=== PATIENT | male | born 1985 | race Caucasian/White ===

== ENCOUNTER 2016-10-25 03:16 | Inpatient (IN) | payer OTHER ==
[2016-10-25] MEDS ORDERED: NORMAL SALINE 1000 ML 1,000 ML IV ONE ×3 (03:45→04:40)
[2016-10-25] MEDS ORDERED: MORPHINE SULFATE 10 MG/ML INJ IV ONE (03:47)
--- NOTE | 2016-10-25 03:47 | ER Document Report ---
ED GI/ - General Chief Complaint: Abdominal Pain Stated Complaint: ABDOMINAL PAIN Time Seen by Provider: 10/25/16 03:31 Notes: Patient is a 30 year old male that comes to the ED for chief complaint of mid and left upper quadrant abdominal pain with about 7-8 episodes of vomiting. He denies hematemesis, he denies abnormal bowel movements. He denies chest pain, shortness of breath, fever. He comes by EMS, was given 8 mg Zofran ODT. He admits that he did binge for about 3-4 days on alcohol, states he has had a problem with this in the past, he has not had anything to drink since 5 AM reportedly. He has had pancreatitis in the past. He denies any surgeries. he is on omeprazole and trazodone at home. He denies any recreational drugs. TRAVEL OUTSIDE OF THE [place] IN LAST 30 DAYS: No - Related Data Allergies/Adverse Reactions: No Known Allergies Allergy (Unverified 11/21/15 18:23) Past Medical History - General Information source: Patient - Social History Smoking Status: Never Smoker Frequency of alcohol use: Heavy Drug Abuse: None Lives with: Alone Family History: Reviewed & Not Pertinent Patient has suicidal ideation: No Patient has homicidal ideation: No Renal/ Medical History: Denies: Hx Peritoneal Dialysis GI Medical History: Reports: Hx Gastroesophageal Reflux Disease. Denies: Hx Cirrhosis, Hx Crohn's Disease, Hx Diverticulitis, Hx Hepatitis, Hx Hiatal Hernia , Hx Ulcerative Colitis Skin Medical History: Denies Hx Eczema, Denies Hx Psoriasis Psychiatric Medical History: Reports: Hx Depression Infectious Medical History: Denies: Hx C-Diff, Hx Hepatitis, Hx HIV, Hx MRSA, Hx VRE Surgical Hx: Negative - Immunizations Immunizations up to date: Yes Hx Diphtheria, Pertussis, Tetanus Vaccination: Yes Review of Systems - Review of Systems Constitutional: No symptoms reported EENT: No symptoms reported Cardiovascular: No symptoms reported Respiratory: No symptoms reported Gastrointestinal: See HPI Genitourinary: No symptoms reported Male Genitourinary: No symptoms reported Musculoskeletal: No symptoms reported Skin: No symptoms reported Hematologic/Lymphatic: No symptoms reported Neurological/Psychological: No symptoms reported Physical Exam - Vital signs Vitals: Temp Pulse Resp BP Pulse Ox 97.5 F 54 L 24 H 168/84 H 97 10/25/16 03:32 10/25/16 03:32 10/25/16 03:32 10/25/16 03:32 10/25/16 03:32 Interpretation: Normal - General General appearance: Alert In distress: Mild - HEENT Head: Normocephalic, Atraumatic Eyes: Normal Conjunctiva: Normal Extraocular movements intact: Yes Eyelashes: Normal Pupils: PERRL Mouth/Lips: Normal, Other - trace amounts of zofran on lips Mucous membranes: Dry Pharynx: Normal Neck: Normal - Respiratory Respiratory status: No respiratory distress Chest status: Nontender Breath sounds: Normal Chest palpation: Normal - Cardiovascular Rhythm: Regular Heart sounds: Normal auscultation Murmur: No - Abdominal Inspection: Normal Distension: No distension Bowel sounds: Normal Tenderness: Tender - Tender epigastric and left upper quadrant areas on examination. Remaining abdomen is unremarkable. Organomegaly: No organomegaly - Back Back: Normal, Nontender - Extremities General upper extremity: Normal inspection, Nontender, Normal color, Normal ROM , Normal temperature General lower extremity: Normal inspection, Nontender, Normal color, Normal ROM , Normal temperature, Normal weight bearing. No: Alen's sign - Neurological Neuro grossly intact: Yes Cognition: Normal Orientation: AAOx4 Vicky Coma Scale Eye Opening: Spontaneous [place] Coma Scale Verbal: Oriented [place] Coma Scale Motor: Obeys Commands [place] Coma Scale Total: 15 Speech: Normal Motor strength normal: LUE, RUE, LLE, RLE Sensory: Normal - Psychological Associated symptoms: Anxious - Skin Skin Temperature: Warm Skin Moisture: Dry Skin Color: Normal Course - Re-evaluation Re-evalutation: Patient with epigastric and left upper quadrant pain on examination. He appears uncomfortable but he is alert, nontoxic. No tachycardia or hypotension. Remaining abdomen is unremarkable. No vomiting after Zofran. CBC shows mild leukocytosis at 11.2 with elevation of neutrophils, no bandemia, most likely related to vomiting. Chemistry shows normal LFTs, total bilirubin is mildly elevated but direct bilirubin is normal. Alkaline phosphate is unremarkable. Lipase is elevated consistent with acute alcoholic pancreatitis. Low suspicion of obstructive abnormality based on presentation and chemistry findings. Discussed with patient, patient still having pain after morphine, most likely will require admission. Discussed with Dr. Blood. Discussed with Dr. Nesbitt, patient will be admitted to telemetry for admission. - Vital Signs Vital signs: Temp Pulse Resp BP Pulse Ox 97.5 F 54 L 24 H 168/84 H 97 10/25/16 03:32 10/25/16 03:32 10/25/16 03:32 10/25/16 03:32 10/25/16 03:32 - Laboratory Result Diagrams: 10/25/16 03:51 10/25/16 03:51 Laboratory results interpreted by me: 10/25/16 10/25/16 03:51 03:51 WBC 11.5 H Seg Neutrophils % 88.6 H Lymphocytes % 5.5 L Absolute Neutrophils 10.2 H Sodium 136.8 L Glucose 217 H Total Bilirubin 1.7 H Lipase 3860.5 H Discharge - Discharge Clinical Impression: Alcohol abuse Pancreatitis Qualifiers: Chronicity: acute Pancreatitis type: alcohol induced Acute pancreatitis complication: unspecified Qualified Code(s): K85.20 - Alcohol induced acute pancreatitis without necrosis or infection Abdominal pain Qualifiers: Abdominal location: upper abdomen, unspecified Qualified Code(s): R10.10 - Upper abdominal pain, unspecified Nausea and vomiting Qualifiers: Vomiting type: unspecified Vomiting Intractability: non-intractable Qualified Code(s): R11.2 - Nausea with vomiting, unspecified Condition: Stable Disposition: ADMITTED INPATIENT Admitting Provider: Hospitalist Unit Admitted: Telemetry
[2016-10-25 04:08] LABS: ABSOLUTE LYMPHOCYTES (AUTO) 0.6 10^3/uL (0.5-4.7); ABSOLUTE MONOCYTES (AUTO) 0.7 10^3/uL (0.1-1.4); ABSOLUTE NEUT (AUTO) 10.2 10^3/uL (1.7-8.2); BASOPHILS % (AUTO) 0.1 % (0-2); HEMATOCRIT 47.3 % (37.9-51.0); HEMOGLOBIN 16.8 g/dL (13.5-17.0); HGB HCT DIFFERENCE 3.1; LYMPHOCYTES % (AUTO) 5.5 % (13-45); MEAN CORPUSCULAR HEMOGLOBIN 30.5 pg (27.0-33.4); MEAN CORPUSCULAR HGB CONC 35.5 g/dL (32.0-36.0); MEAN CORPUSCULAR VOLUME 86 fl (80-97); MONOCYTES % (AUTO) 5.8 % (3-13); RED BLOOD COUNT 5.51 10^6/uL (4.35-5.55); RED CELL DISTRIBUTION WIDTH 13.6 % (11.5-14.0); SEGMENTED NEUTROPHILS % (AUTO) 88.6 % (42-78); WHITE BLOOD COUNT 11.5 10^3/uL (4.0-10.5)
[2016-10-25 04:22] LABS: ALANINE AMINOTRANSFERASE 35 U/L (21-72); ALBUMIN 4.6 g/dL (3.5-5.0); ALKALINE PHOSPHATASE 83 U/L (38-126); ANION GAP 15 (5-19); ASPARTATE AMINO TRANSFERASE 27 U/L (17-59); BILIRUBIN,DIRECT 0.4 mg/dL (0.0-0.4); BILIRUBIN,TOTAL 1.7 mg/dL (0.2-1.3); BLOOD UREA NITROGEN 16 mg/dL (7-20); CALCIUM 9.7 mg/dL (8.4-10.2); CARBON DIOXIDE 24 mmol/L (22-30); CHLORIDE 98 mmol/L (98-107); CREATININE RESULT 0.98 mg/dL (0.52-1.25); GLUCOSE 217 mg/dL (75-110); POTASSIUM 4.4 mmol/L (3.6-5.0); SODIUM 136.8 mmol/L (137-145); TOTAL PROTEIN 7.3 g/dL (6.3-8.2)
[2016-10-25 04:28] LABS: ALCOHOL < 10 mg/dL (NONE DETECTED); LIPASE 3860.5 U/L (23-300)
[2016-10-25] MEDS ORDERED: THIAMINE HCL 100 MG in NORMAL SALINE 50 ML IV ONE (04:40)
[2016-10-25] MEDS ORDERED: HYDROMORPHONE HCL INJ/PF 2 MG/ML AMPULE IV ONE (04:40)
[2016-10-25] MEDS ORDERED: THIAMINE HCL INJ 200 MG/2 ML VIAL IV PRN (04:56)
[2016-10-25 05:10] LABS: ADD ON TESTING BLD IN LAB ACKNOWLEDGE
[2016-10-25 05:19] LABS: MAGNESIUM 1.4 mg/dL (1.6-2.3)
[2016-10-25] MEDS ORDERED: NORMAL SALINE IV ONE (05:30)
[2016-10-25] MEDS ORDERED: THIAMINE HCL IV ONE (05:30)
[2016-10-25] MEDS ORDERED: ACETAMINOPHEN 325 MG TABLET PO PRN (05:43)
[2016-10-25] MEDS ORDERED: MORPHINE SULFATE 10 MG/ML INJ IV PRN (05:43)
[2016-10-25] MEDS ORDERED: PROMETHAZINE HCL 25 MG TABLET PO PRN (05:43)
[2016-10-25] MEDS ORDERED: GLUCAGON,HUMAN RECOMB 1 MG INJ IM PRN (05:45)
[2016-10-25] MEDS ORDERED: DEXTROSE 50%-WATER 25 GM/50 ML DISP.SYRIN IV PRN ×2 (05:45)
[2016-10-25] MEDS ORDERED: DEXTROSE 40% GEL 15 GM TUBE PO PRN ×2 (05:45)
[2016-10-25] MEDS ORDERED: INSULIN LISPRO 100 UNIT/ML 3 ML VIAL SUBCUT PRN (05:45)
[2016-10-25] MEDS ORDERED: LORAZEPAM INJ 2 MG/1 ML VIAL IV PRN ×3 (05:47→06:00)
[2016-10-25] MEDS ORDERED: MAGNESIUM HYDROXIDE SUSP 30 ML UDCUP PO PRN (05:51)
[2016-10-25] MEDS: LORAZEPAM INJ 2 MG/1 ML VIAL IV PRN ×5 (06:03→21:33)
[2016-10-25] MEDS ORDERED: NICOTINE 21 MG/24 HR PATCH.TD24 TD PRN (06:24)
--- NOTE | 2016-10-25 06:28 | PDOC H&P ---
History of Present Illness Admission Date/PCP: 10/25/16 04:48 Dr. hurley, [facility] Patient complains of: abd pain, N/V History of Present Illness: DEBORAH HARDY is a 30 year old male with underlying depression, without suicidal or homicidal ideation, hypertension, noncompliant with medications for same, easy bruising, alcohol dependence in the form of binging, with 2 prior episodes of alcoholic pancreatitis, 2014, and again in 2016, who presents to the emergency room for evaluation of above complaint. Patient has been discussed with emergency room nurse practitioner who evaluated the patient. Completed a 3-4 day alcoholic binge approximately 24 hours ago; none since then. Starting approximately 12 hours ago, he has experienced intermittent combination cramping and sharp mostly mid and left upper quadrant abdominal pain , without radiation. Increases when he lies on his left side, and with virtually any p.o. intake. 7- 8 episodes of nonbloody emesis. No fever or chills, diarrhea or dysuria. No chest pain. States this feels like his previous 2 episodes of pancreatitis. States that when he is binging alcohol, he will typically drink 1/5 of whiskey per day. Hospitalized on our service 11/20 through 11/29/2015 with final diagnoses including acute alcoholic pancreatitis resolved, and uncomplicated alcohol withdrawal, among other diagnoses. Workup during that hospital stay included CT scan of the abdomen and pelvis revealing extensive peripancreatic inflammatory stranding with free fluid in the paracolic gutters, consistent with pancreatitis. Ultrasound not overly remarkable. History and physical, discharge summary, and imaging study reports reviewed. Currently resting quietly, stating he does feel a bit better though, although still having some upper abdominal pain Dictation via voice recognition software. Laboratory results are listed in [facility] and are reviewed. 10/25/16 03:51 Lipase 3860.5 H Social history/personal habits: . No children. Active duty . Dips snuff. No illicit drug use. Alcohol use as noted above. Allergies/adverse reactions are listed in [employer] and are reviewed. Home medications initially autopopulated into [employer] may not accurately reflect patient's true medications, dosages, and/or frequencies. orthopedic radiologic technologist to reconcile medications. Medications discussed with patient. Unfortunately, patient not certain of all medications/dosages/frequencies. REVIEW OF SYSTEMS: Constitutional: No fever or chills. Eyes: Wears glasses. ENT: No swallowing problems or complaints. Denies hearing loss. Pulmonary: No current complaints. Cardiovascular: No current complaints, including chest pain. Gastrointestinal: See history and present illness. Skin: No current complaints, including rashes. Hematologic: Easy bruising. Neurologic: No current complaints, including numbness or tingling. Musculoskeletal: No current or chronic joint complaints, such as arthritis. Psychiatric: Anxiety and depression; denies suicidal or homicidal ideation. Endocrine: No current complaints, including polyuria. Genitourinary: No current complaints, including dysuria. PHYSICAL EXAMINATION: 6 feet 3 inches tall. 115.5 kg. BMI 31.8 kg/m. Blood pressure 163/86. Pulse 53 and regular. 97% saturation on room air. Respirations are 16 and unlabored. Temperature 97.5. Somewhat obese but also somewhat stocky otherwise well-developed male appearing approximately his stated age. Appears perhaps slightly fatigued, and also to feel a bit under the weather, so to speak. Mildly anxious, without agitation. Pleasant alert and cooperative. Female emergency room nurse Gena is present. Skin is warm and dry. No grossly obvious evidence of rash in areas of skin examined. No subcutaneous nodules palpated. ENT: Hearing grossly normal to normal conversation. Tongue midline on protrusion pink and slightly tacky. Eyes: No scleral icterus. Pupils equal and reactive to light at 4 mm. [place] conjunctivae. Neck is supple and nontender to gentle active range of motion and palpation. Midline trachea. No palpable thyroid nodule mass enlargement or tenderness. Lymphatic: No palpable cervical or clavicular nodes. Neck and lymphatic exams limited by patient body habitus. Psychiatric: Reasonable insight into acute and chronic medical issues. Oriented to time location and why here. Lungs: Auscultation reveals clear and equal breath sounds bilaterally. No use of accessory respiratory muscles. Cardiovascular: Heart regular rate and rhythm, without gallop murmur or rub. No carotid or abdominal aortic bruits. No ankle or pedal edema. Palpable dorsalis pedis pulses. Abdomen:soft somewhat obese and slightly distended with positive bowel sounds. Minimal lower abdominal discomfort; mild to moderate tenderness primarily in the epigastrium and left upper quadrant. No evidence of guarding or peritoneal signs. Unable to adequately evaluate abdomen for masses or organomegaly due to body habitus, distention, and discomfort. Extremities: Feet are warm and dry. No calf tenderness to compression. No grossly obvious visual evidence of calf swelling. Gentle manipulation of lower extremities fails to reveal any obvious evidence of injury or instability to knees hips or ankles. Neurologic: Moves upper extremities grossly normally. Patellar reflexes absent. Absent Babinski. Light touch is intact at feet. Dorsiflexion and plantarflexion of feet 5 / 5 and symmetric. No ankle clonus. Past Medical History Cardiac Medical History: Reports: Hypertension Denies: Atrial Fibrillation, Congestive Heart Failure, Coronary Artery Disease, DVT, Myocardial Infarction, Hyperlipidema, Pulmonary Embolism Pulmonary Medical History: Denies: Asthma, Chronic Obstructive Pulmonary Disease (COPD), Sleep Apnea EENT Medical History: Reports: Eyes - Glasses Denies: Ears, Throat Neurological Medical History: Denies: Hemorrhagic CVA, Ischemic CVA, Seizures Endocrine Medical History: Denies: Diabetes Mellitus Type 1, Diabetes Mellitus Type 2, Hyperthyroidism, Hypothyroidism Renal/ Medical History: Reports: None GI Medical History: Reports: Gastroesophageal Reflux Disease Denies: Cirrhosis, Hepatitis, Peptic Ulcer Disease Musculoskeltal Medical History: Denies: Arthritis Skin Medical History: Denies: Eczema, Psoriasis Psychiatric Medical History: Reports: Alcohol Dependency, Depression, General Anxiety Disorder, Tobacco Dependency Denies: Substance Abuse Hematology: Reports: Other - Easy bruising Infectious Medical History: Denies: Clostridium Difficile, Hepatitis B, Hepatitis C, HIV, Methicillin- Resistant Staph Aureus, Vancomycin-Resistant Enterococci Past Surgical History Past Surgical History: Reports: Orthopedic Surgery - Left knee ACL repair, Tonsillectomy, Other - [place] teeth extraction Social History Information Source: Patient, Emergency Med Personnel, [facility] Records Lives with: Alone Smoking Status: Unknown if Ever Smoked - Dips snuff Frequency of Alcohol Use: Heavy Hx Recreational Drug Use: No Drugs: None - Advance Directive Resuscitation Status: Full Code Surrogate healthcare decision maker:: Father Family History Family History: Reviewed & Not Pertinent Parental Family History Reviewed: Yes - Mother healthy; father with hypertension Children Family History Reviewed: NA Sibling(s) Family History Reviewed.: Yes - Healthy Medication/Allergy Home Medications: Acetyl/Methyl-B12/Lmefolate Ca [Metafolbic Plus Caplet] 1 tab PO DAILY 11/22/15 Fluoxetine HCl 20 mg PO DAILY 11/22/15 Melatonin 3 mg PO QHS 11/22/15 Ranitidine HCl 150 mg PO PRN PRN 11/22/15 Esomeprazole Magnesium [Nexium] 20 mg PO QHS #30 capsule. 11/29/15 Fluoxetine HCl [Prozac 20 mg Capsule] 20 mg PO QHS #14 capsule 11/29/15 Hydroxyzine Pamoate [Vistaril 50 mg Capsule] 50 mg PO Q6HP PRN #20 capsule 11/28 Lisinopril [Prinivil 5 mg Tablet] 5 mg PO DAILY #30 tablet 11/29/15 Thiamine HCl [Thiamine 100 mg Tablet] 100 mg PO DAILY #90 tablet 11/29/15 Trazodone HCl 200 mg PO QHS #30 tablet 11/29/15 Allergies/Adverse Reactions: No Known Allergies Allergy (Unverified 11/21/15 18:23) Physical Exam Vital Signs: Temp Pulse Resp BP Pulse Ox 97.5 F 54 L 20 167/91 H 97 10/25/16 03:32 10/25/16 03:32 10/25/16 05:31 10/25/16 05:31 10/25/16 05:31 Assessment & Plan - Diagnosis (1) Alcoholic pancreatitis Qualifiers: Chronicity: acute Acute pancreatitis complication: unspecified Qualified Code(s): K85.20 - Alcohol induced acute pancreatitis without necrosis or infection Is this a current diagnosis for this admission?: Yes Plan: Bowel rest. Ice chips only. IV fluid. Pain control. Lipid panel. Strict intake and output. Pepcid for gastritis prophylaxis. I have strongly encouraged patient not to get out of bed without notifying staff , to avoid a fall with injury. Knee high SCDs for DVT prophylaxis, along with subcutaneous Lovenox. Impression and plans were discussed with patient, who concurs. Time spent in evaluation and management of patient: 68 minutes. (2) Hypomagnesemia Is this a current diagnosis for this admission?: Yes Plan: Magnesium supplement. (3) Engages in binge consumption of alcohol Is this a current diagnosis for this admission?: Yes Plan: Alcohol withdrawal protocol, including scheduled and as needed Ativan, along with daily banana bag. (4) Depressive disorder Is this a current diagnosis for this admission?: Yes Plan: Resume home medications as appropriate once these have been determined and reviewed. (5) Tobacco dependence Is this a current diagnosis for this admission?: Yes Plan: As needed nicotine patch. - Time Time Spent: 50 to 70 Minutes Medications reviewed and adjusted accordingly: Yes Anticipated discharge: Home Within: within 72 hours - Inpatient Certification Based on my medical assessment, after consideration of the patient's comorbidities, presenting symptoms, or acuity I expect that the services needed warrant INPATIENT care.: Yes I certify that my determination is in accordance with my understanding of Medicare's requirements for reasonable and necessary INPATIENT services [42 CFR 412.3e].: Yes Medical Necessity: Need Close Monitoring Due to Risk of Patient Decompensation, Need For IV Fluids, Need for Pain Control, Risk of Complication if Not Cared For in Hospital Post Hospital Care: D/C or Transfer Summary
[2016-10-25] MEDS ORDERED: ENALAPRILAT DIHYDRATE INJ/PF 1.25 MG/1 ML SDV IV PRN (06:29)
[2016-10-25] MEDS ORDERED: MAGNESIUM SULFATE/D5W 1 GM/100 ML RTUPB IV SCH (06:30)
[2016-10-25 07:10] LABS: CHOLESTEROL 197.58 mg/dL (0-200); Direct HDL 65 mg/dL (>40); TRIGLYCERIDES 195 mg/dL (<150)
[2016-10-25 07:21] LABS: DIRECT LDL 91 mg/dL (<100)
[2016-10-25] MEDS: HYDROMORPHONE HCL INJ/PF 2 MG/ML AMPULE IV PRN ×5 (09:07→23:48)
[2016-10-25] MEDS: FAMOTIDINE INJ/PF 20 MG/2 ML SDV IV SCH ×2 (09:08→21:33)
[2016-10-25] MEDS: ENOXAPARIN SODIUM INJ 40 MG/0.4 ML DISP.SYRIN SUBCUT SCH (09:08)
[2016-10-25] MEDS: NORMAL SALINE 1000 ML 1,000 ML IV PRN ×3 (09:09→19:35)
[2016-10-25] MEDS ORDERED: FATTY ACIDS PO SCH (10:00)
[2016-10-25] MEDS ORDERED: MELATONIN 9 MG PO SCH ×2 (10:00→22:00)
[2016-10-25] MEDS ORDERED: OMEGA PO SCH (10:00)
[2016-10-25] MEDS ORDERED: FISH OIL PO SCH (10:00)
[2016-10-25] MEDS: DOCUSATE SODIUM 100 MG CAPSULE PO SCH ×2 (10:10→17:52)
[2016-10-25] MEDS: OMEGA-3 ACID ETHYL ESTERS 1 GM CAPSULE PO SCH (10:12)
[2016-10-25] MEDS: MULTIVITAMIN TABLET PO SCH (10:12)
[2016-10-25] MEDS: MAGNESIUM SULFATE 1 GM/D5W 100 ML IV SCH ×2 (13:54→16:15)
[2016-10-25] MEDS: NORMAL SALINE 1000 ML 1,000 ML with THIAMINE HCL 100 MG, MVI, ADULT NO.1 WITH VIT K 10 ... IV SCH ×4 (17:52)
[2016-10-25 19:29] LABS: URINE BARBITURATES SCREEN NEGATIVE; URINE METHADONE SCREEN NEGATIVE; URINE PHENCYCLIDINE SCREEN NEGATIVE
[2016-10-25 19:41] LABS: URINE OPIATES LOW UNCONFIRMED POSITIVE
[2016-10-25] MEDS ORDERED: TRAZODONE HCL 50 MG TABLET PO SCH (22:00)
[2016-10-25] MEDS ORDERED: (PENDING PHARMACY ID) (Trazodone Hcl [Desyrel] 150 MG) PO SCH (22:00)
[2016-10-26] MEDS: NORMAL SALINE 1000 ML 1,000 ML IV PRN ×5 (02:34→19:45)
[2016-10-26] MEDS: LORAZEPAM INJ 2 MG/1 ML VIAL IV PRN ×6 (02:38→19:57)
[2016-10-26] MEDS: HYDROMORPHONE HCL INJ/PF 2 MG/ML AMPULE IV PRN ×5 (04:45→18:33)
[2016-10-26 05:21] LABS: ABSOLUTE LYMPHOCYTES (AUTO) 0.8 10^3/uL (0.5-4.7); ABSOLUTE MONOCYTES (AUTO) 0.5 10^3/uL (0.1-1.4); ABSOLUTE NEUT (AUTO) 6.7 10^3/uL (1.7-8.2); BASOPHILS % (AUTO) 0.2 % (0-2); EOSINOPHILS % (AUTO) 0.1 % (0-6); HEMATOCRIT 42.2 % (37.9-51.0); HEMOGLOBIN 14.9 g/dL (13.5-17.0); HGB HCT DIFFERENCE 2.5; LYMPHOCYTES % (AUTO) 9.9 % (13-45); MEAN CORPUSCULAR HEMOGLOBIN 30.8 pg (27.0-33.4); MEAN CORPUSCULAR HGB CONC 35.3 g/dL (32.0-36.0); MEAN CORPUSCULAR VOLUME 87 fl (80-97); MONOCYTES % (AUTO) 5.6 % (3-13); RED BLOOD COUNT 4.84 10^6/uL (4.35-5.55); RED CELL DISTRIBUTION WIDTH 13.5 % (11.5-14.0); SEGMENTED NEUTROPHILS % (AUTO) 84.2 % (42-78)
[2016-10-26 05:38] LABS: ALANINE AMINOTRANSFERASE 18 U/L (21-72); ALBUMIN 3.4 g/dL (3.5-5.0); ALKALINE PHOSPHATASE 59 U/L (38-126); ANION GAP 9 (5-19); ASPARTATE AMINO TRANSFERASE 19 U/L (17-59); BILIRUBIN,DIRECT 0.6 mg/dL (0.0-0.4); BILIRUBIN,TOTAL 1.3 mg/dL (0.2-1.3); BLOOD UREA NITROGEN 11 mg/dL (7-20); CALCIUM 8.3 mg/dL (8.4-10.2); CARBON DIOXIDE 26 mmol/L (22-30); CHLORIDE 103 mmol/L (98-107); CREATININE RESULT 0.87 mg/dL (0.52-1.25); GLUCOSE 103 mg/dL (75-110); MAGNESIUM 2.1 mg/dL (1.6-2.3); POTASSIUM 4.3 mmol/L (3.6-5.0); SODIUM 138.2 mmol/L (137-145); TOTAL PROTEIN 5.6 g/dL (6.3-8.2)
[2016-10-26 05:46] LABS: LIPASE 2043.8 U/L (23-300)
--- NOTE | 2016-10-26 09:25 | PDOC PROGRESS REPORT ---
Subjective Progress Note for:: 10/26/16 Subjective:: Patient is seen on morning rounds. He states he is feeling better than yesterday. He is no longer nauseated. Abdominal pain is still present intermittently, but improved. He denies any shortness of breath or dyspnea. He denies any back pain, arthralgias or myalgias. Remaining review of systems is unremarkable. Physical Exam Vital Signs: Temp Pulse Resp BP Pulse Ox 99.4 F 56 L 16 145/86 H 98 10/26/16 07:12 10/26/16 07:12 10/26/16 07:12 10/26/16 07:12 10/26/16 07:12 Intake & Output 10/25/16 10/26/16 10/27/16 06:59 06:59 06:59 Intake Total 6120 Output Total 700 Balance 5420 Weight 125.7 kg General appearance: PRESENT: no acute distress, obese, well-developed, well- nourished Head exam: PRESENT: atraumatic, normocephalic Eye exam: PRESENT: conjunctiva pink, EOMI, PERRLA. ABSENT: scleral icterus Ear exam: PRESENT: normal external ear exam Mouth exam: PRESENT: moist, tongue midline Neck exam: ABSENT: carotid bruit, JVD, lymphadenopathy, thyromegaly Respiratory exam: PRESENT: clear to auscultation lela. ABSENT: rales, rhonchi, wheezes Cardiovascular exam: PRESENT: RRR. ABSENT: diastolic murmur, rubs, systolic murmur Pulses: PRESENT: normal dorsalis pedis pul Vascular exam: PRESENT: normal capillary refill GI/Abdominal exam: PRESENT: normal bowel sounds, soft, tenderness - mild epigastric. ABSENT: distended, guarding, mass, organolmegaly, rebound Rectal exam: PRESENT: deferred Extremities exam: PRESENT: full ROM. ABSENT: calf tenderness, clubbing, pedal edema Neurological exam: PRESENT: alert, awake, oriented to person, oriented to place , oriented to time, oriented to situation, CN II-XII grossly intact. ABSENT: motor sensory deficit Psychiatric exam: PRESENT: appropriate affect, normal mood. ABSENT: homicidal ideation, suicidal ideation Skin exam: PRESENT: dry, intact, warm. ABSENT: cyanosis, rash Results Laboratory Results: 10/26/16 04:26 10/26/16 04:26 10/26/16 10/26/16 04:26 04:26 WBC 8.0 RBC 4.84 Hgb 14.9 Hct 42.2 MCV 87 MCH 30.8 MCHC 35.3 RDW 13.5 Plt Count 112 L Seg Neutrophils % 84.2 H Lymphocytes % 9.9 L Monocytes % 5.6 Eosinophils % 0.1 Basophils % 0.2 Absolute Neutrophils 6.7 Absolute Lymphocytes 0.8 Absolute Monocytes 0.5 Absolute Eosinophils 0.0 Absolute Basophils 0.0 Sodium 138.2 Potassium 4.3 Chloride 103 Carbon Dioxide 26 Anion Gap 9 BUN 11 Creatinine 0.87 Est GFR ( Amer) > 60 Est GFR (Non-Af Amer) > 60 Glucose 103 Calcium 8.3 L Magnesium 2.1 Total Bilirubin 1.3 AST 19 ALT 18 L Alkaline Phosphatase 59 Total Protein 5.6 L Albumin 3.4 L Lipase 2043.8 H Assessment & Plan - Diagnosis (1) Alcoholic pancreatitis Qualifiers: Chronicity: acute Acute pancreatitis complication: unspecified Qualified Code(s): K85.20 - Alcohol induced acute pancreatitis without necrosis or infection Is this a current diagnosis for this admission?: Yes Plan: Lipase down to 2077 today. Abdominal pain improved. Nausea and vomiting resolved. Will allow small amounts of clear liquids (2) Alcohol abuse Plan: No signs of DTs. Thiamine. Outpatient counseling (3) Hypomagnesemia Is this a current diagnosis for this admission?: Yes (4) Nausea and vomiting Qualifiers: Vomiting type: unspecified Vomiting Intractability: non-intractable Qualified Code(s): R11.2 - Nausea with vomiting, unspecified Plan: Resolved (5) Chronic alcoholism Is this a current diagnosis for this admission?: Yes (6) Elevated liver function tests Is this a current diagnosis for this admission?: Yes Plan: Secondary to chronic alcoholism - Time Time Spent with patient: 25-34 minutes Critical Time spent with patient: 15-24 minutes Medications reviewed and adjusted accordingly: Yes Anticipated discharge: Home
[2016-10-26] MEDS: OMEGA-3 ACID ETHYL ESTERS 1 GM CAPSULE PO SCH (09:37)
[2016-10-26] MEDS: DOCUSATE SODIUM 100 MG CAPSULE PO SCH ×2 (09:38→17:31)
[2016-10-26] MEDS: FAMOTIDINE INJ/PF 20 MG/2 ML SDV IV SCH (09:38)
[2016-10-26] MEDS: ENOXAPARIN SODIUM INJ 40 MG/0.4 ML DISP.SYRIN SUBCUT SCH (09:38)
[2016-10-26] MEDS: MULTIVITAMIN TABLET PO SCH (09:38)
--- NOTE | 2016-10-26 15:07 | PDOC DISCHARGE SUMMARY ---
General - Admit/Disc Date/PCP Admission Date/Primary Care Provider: 10/25/16 05:51 Discharge Date: 10/26/16 - Discharge Diagnosis (1) Alcoholic pancreatitis Is this a current diagnosis for this admission?: Yes Summary: Lipase trending downward. Pain improved, No longer vomiting tolerating diet. Patient asking to be discharged home due to his job. (2) Alcohol abuse Is this a current diagnosis for this admission?: Yes Summary: Counseled. With follow up with outpatient counseling. (3) Hypomagnesemia Is this a current diagnosis for this admission?: Yes Summary: Resolved (4) Nausea and vomiting Is this a current diagnosis for this admission?: Yes Summary: Resolved (5) Chronic alcoholism Is this a current diagnosis for this admission?: Yes Summary: Patient says he binge drinks when he is bored (6) Elevated liver function tests Is this a current diagnosis for this admission?: Yes Summary: Secondary to etoh intake - Additional Information Resuscitation Status: Full Code Discharge Diet: Regular Discharge Activity: Activity As Tolerated, Balance Activity w/Rest Home Medications: Melatonin [Melatin] 9 mg PO QHS 10/25/16 Multivitamin [Daily Multiple Vitamin] 1 tab PO DAILY 10/25/16 [place]-3 Fatty Acids/Fish Oil [Fish Oil 1,000 mg Capsule] 3 cap PO DAILY Pantoprazole Sodium [Protonix] 40 mg PO DAILY 10/25/16 Trazodone HCl [Desyrel] 150 mg PO QHS 10/25/16 Acetaminophen [Tylenol 325 mg Tablet] 650 mg PO Q8HP PRN tablet 10/26/16 Hydrocodone/Acetaminophen [Hydrocodon-Acetaminophn 10-300] 1 each PO Q4HP PRN # 18 tablet 10/26/16 Nicotine [Nicoderm 21 mg/24 Hr Transderm Patch] 1 each TD DAILYP PRN patch.td24 10/26/16 History of Present Illness Patient complains of: Epigastric pain and vomiting History of Present Illness: DEBORAH HARDY is a 30 year old male with underlying depression, without suicidal or homicidal ideation, hypertension, noncompliant with medications for same, easy bruising, alcohol dependence in the form of binging, with 2 prior episodes of alcoholic pancreatitis, 2014, and again in 2016, who presents to the emergency room for evaluation of above complaint. Patient has been discussed with emergency room nurse practitioner who evaluated the patient. Completed a 3-4 day alcoholic binge approximately 24 hours ago; none since then. Starting approximately 12 hours ago, he has experienced intermittent combination cramping and sharp mostly mid and left upper quadrant abdominal pain , without radiation. Increases when he lies on his left side, and with virtually any p.o. intake. 7- 8 episodes of nonbloody emesis. No fever or chills, diarrhea or dysuria. No chest pain. States this feels like his previous 2 episodes of pancreatitis. States that when he is binging alcohol, he will typically drink 1/5 of whiskey per day. Hospital Course Hospital Course: Patient was admitted to [facility] on telemetry. He was aggressively rehydrated is kept n.p.o. for 24 hours. This morning his abdominal pain is much improved. His lipase is trending down below 1200 he tolerated clear liquids. Having no further vomiting. Patient asked if he could possibly be discharged home this evening because of his employment in the . He was given IV Dilaudid with improvement of his pain during his hospitalization. He required 1 dose of IV Zofran. He had no signs of alcohol withdrawal. He states he does not drink daily large amounts. He tends to binge drink when he is bored and then he drinks up to 1/5 of whiskey a day. He has been counseled regarding this. He will be referred to outpatient counseling for for alcohol abuse. This is his third hospitalization for alcoholic pancreatitis. Physical Exam Vital Signs: Temp Pulse Resp BP Pulse Ox 99.4 F 56 L 16 145/86 H 98 10/26/16 07:12 10/26/16 07:12 10/26/16 07:12 10/26/16 07:12 10/26/16 07:12 Intake & Output 10/25/16 10/26/16 10/27/16 06:59 06:59 06:59 Intake Total 6120 491 Output Total 700 340 Balance 5420 151 Weight 125.7 kg General appearance: PRESENT: no acute distress, well-developed, well-nourished Head exam: PRESENT: atraumatic, normocephalic Eye exam: PRESENT: conjunctiva pink, EOMI, PERRLA. ABSENT: scleral icterus Ear exam: PRESENT: normal external ear exam Mouth exam: PRESENT: moist, tongue midline Neck exam: ABSENT: carotid bruit, JVD, lymphadenopathy, thyromegaly Respiratory exam: PRESENT: clear to auscultation lela. ABSENT: rales, rhonchi, wheezes Cardiovascular exam: PRESENT: RRR. ABSENT: diastolic murmur, rubs, systolic murmur Pulses: PRESENT: normal dorsalis pedis pul Vascular exam: PRESENT: normal capillary refill GI/Abdominal exam: PRESENT: normal bowel sounds, soft, tenderness - mild epigastric to deep palpation. ABSENT: distended, guarding, mass, organolmegaly , rebound Rectal exam: PRESENT: deferred Extremities exam: PRESENT: full ROM. ABSENT: calf tenderness, clubbing, pedal edema Neurological exam: PRESENT: alert, awake, oriented to person, oriented to place , oriented to time, oriented to situation, CN II-XII grossly intact. ABSENT: motor sensory deficit Psychiatric exam: PRESENT: appropriate affect, normal mood. ABSENT: homicidal ideation, suicidal ideation Skin exam: PRESENT: dry, intact, warm. ABSENT: cyanosis, rash Results Laboratory Results: 10/26/16 04:26 10/26/16 04:26 10/26/16 10/26/16 10/26/16 04:26 04:26 13:50 WBC 8.0 RBC 4.84 Hgb 14.9 Hct 42.2 MCV 87 MCH 30.8 MCHC 35.3 RDW 13.5 Plt Count 112 L Seg Neutrophils % 84.2 H Lymphocytes % 9.9 L Monocytes % 5.6 Eosinophils % 0.1 Basophils % 0.2 Absolute Neutrophils 6.7 Absolute Lymphocytes 0.8 Absolute Monocytes 0.5 Absolute Eosinophils 0.0 Absolute Basophils 0.0 Sodium 138.2 Potassium 4.3 Chloride 103 Carbon Dioxide 26 Anion Gap 9 BUN 11 Creatinine 0.87 Est GFR ( Amer) > 60 Est GFR (Non-Af Amer) > 60 Glucose 103 Calcium 8.3 L Magnesium 2.1 Total Bilirubin 1.3 AST 19 ALT 18 L Alkaline Phosphatase 59 Total Protein 5.6 L Albumin 3.4 L Lipase 2043.8 H 1443.5 H Qualifiers [place] BEING DISCHARGED WITH ANY OF THE FOLLOWING DIAGNOSIS?: No Plan Discharge Plan: Home Time Spent: Less than 30 Minutes
[2016-10-26 17:09] VITALS: BP 147/89
[2016-10-26] MEDS: NORMAL SALINE 1000 ML 1,000 ML with THIAMINE HCL 100 MG, MVI, ADULT NO.1 WITH VIT K 10 ... IV SCH ×4 (17:31)
== END 2016-10-26 20:52 | disposition home or self-care (01) | DRG 440 ==
LOC: ER 03:16 → EH 04:48 → UNDOADMIN 04:48 → EH 05:51 → 3N 08:50
PROVIDERS: ADMIT Family Medicine; ATTEND Family Medicine
DX: K85.20 Alcohol induced acute pancreatitis without necrosis or infection (principal); F10.20 Alcohol dependence, uncomplicated; E83.42 Hypomagnesemia; E66.9 Obesity, unspecified; Z68.34 Body mass index [BMI] 34.0-34.9, adult; K21.9 Gastro-esophageal reflux disease without esophagitis; F41.1 Generalized anxiety disorder; F32.9 Major depressive disorder, single episode, unspecified; F17.200 Nicotine dependence, unspecified, uncomplicated; Z79.899 Other long term (current) drug therapy
CPT/HCPCS: 36415; 80053; 80061; 80307; 82962; 83036; 83690; 83735; 85025; 94799; 96361; 96374; 99284; J1170; J1650; J2060; J2270; J3411; J3475; J3490; J7030; S0028

== ENCOUNTER 2017-01-16 09:33 | Inpatient (IN) | payer OTHER ==
[2017-01-16] MEDS ORDERED: ONDANSETRON 4 MG TAB.RAPDIS PO ONE (10:00)
[2017-01-16] MEDS ORDERED: NORMAL SALINE 1000 ML 1,000 ML IV ONE (10:00)
--- NOTE | 2017-01-16 10:18 | ER Document Report ---
ED Medical Screen (RME) - General Information source: Patient TRAVEL OUTSIDE OF THE [place] IN LAST 30 DAYS: No - General Chief Complaint: Abdominal Problem Stated Complaint: VOMITING ABDOMINAL PAIN Time Seen by Provider: 01/16/17 09:57 Notes: Patient is a 31 year old male presenting to the emergency department complaining of abdominal pain and vomiting onset 2 days ago. Patient states that it also feels like he is having alcohol withdrawals. Patients associated symptoms include diaphoresis, decreased appetite, vomiting, and decreased bowel movements. (EMANI LARSON) - Related Data Allergies/Adverse Reactions: No Known Allergies Allergy (Verified 01/16/17 09:47) Past Medical History - General Information source: Patient - Social History Chew tobacco use (# tins/day): Yes Frequency of alcohol use: 1/5th a day Drug Abuse: Other - Past Medical History Cardiac Medical History: Reports: Hx Hypertension Denies: Hx Atrial Fibrillation, Hx Congestive Heart Failure, Hx Coronary Artery Disease, Hx DVT, Hx Heart Attack, Hx Hypercholesterolemia, Hx Pulmonary Embolism Pulmonary Medical History: Denies: Hx Asthma, Hx COPD, Hx Sleep Apnea Neurological Medical History: Denies: Hx Seizures Endocrine Medical History: Denies: Hx Diabetes Mellitus Type 1, Hx Diabetes Mellitus Type 2, Hx Hyperthyroidism, Hx Hypothyroidism Renal/ Medical History: Denies: Hx Peritoneal Dialysis GI Medical History: Reports: Hx Gastroesophageal Reflux Disease. Denies: Hx Cirrhosis, Hx Crohn's Disease, Hx Diverticulitis, Hx Hepatitis, Hx Hiatal Hernia , Hx Ulcerative Colitis Musculoskeltal Medical History: Denies Hx Arthritis Skin Medical History: Denies Hx Eczema, Denies Hx Psoriasis Psychiatric Medical History: Reports: Hx Depression Infectious Medical History: Denies: Hx C-Diff, Hx Hepatitis, Hx HIV, Hx MRSA, Hx VRE Past Surgical History: Reports: Hx Orthopedic Surgery - Left knee ACL repair, Hx Tonsillectomy, Other - [place] teeth extraction - Immunizations Immunizations up to date: Yes Hx Diphtheria, Pertussis, Tetanus Vaccination: Yes Review of Systems - Review of Systems Constitutional: See HPI EENT: No symptoms reported Cardiovascular: No symptoms reported Respiratory: No symptoms reported Gastrointestinal: See HPI -: Yes All other systems reviewed and negative Physical Exam - General General appearance: Other - Appears uncomforatble - Cardiovascular Rhythm: Tachycardia - Abdominal Tenderness: Tender - epigastric area tender to palpation - Extremities Hand: Other - fine tremor - Vital signs Vitals: Temp Pulse Resp BP Pulse Ox 97.6 F 110 H 20 168/107 H 94 01/16/17 09:42 01/16/17 09:42 01/16/17 09:42 01/16/17 09:42 01/16/17 09:42 - Vital Signs Vital signs: Temp Pulse Resp BP Pulse Ox 97.6 F 110 H 20 168/107 H 94 01/16/17 09:42 01/16/17 09:42 01/16/17 09:42 01/16/17 09:42 01/16/17 09:42 Scribe Documentation - Scribe Written by Maxi:: Maxi Peters, 01/16/2017 10:19 acting as scribe for :: Kunal
[2017-01-16] MEDS ORDERED: KETOROLAC TROMETHAMINE INJ/PF 30 MG/1 ML SDV IV ONE (11:01)
[2017-01-16] MEDS ORDERED: METOCLOPRAMIDE HCL INJ/PF 10 MG/2 ML SDV IV ONE (11:01)
[2017-01-16] MEDS ORDERED: DIPHENHYDRAMINE HCL 50 MG/ML VIAL IV ONE (11:02)
[2017-01-16 11:11] LABS: ABSOLUTE LYMPHOCYTES (AUTO) 0.9 10^3/uL (0.5-4.7); ABSOLUTE MONOCYTES (AUTO) 0.6 10^3/uL (0.1-1.4); ABSOLUTE NEUT (AUTO) 5.4 10^3/uL (1.7-8.2); BASOPHILS % (AUTO) 0.3 % (0-2); EOSINOPHILS % (AUTO) 0.4 % (0-6); HEMATOCRIT 45.5 % (37.9-51.0); HEMOGLOBIN 16.5 g/dL (13.5-17.0); LYMPHOCYTES % (AUTO) 13.4 % (13-45); MEAN CORPUSCULAR HEMOGLOBIN 30.8 pg (27.0-33.4); MEAN CORPUSCULAR HGB CONC 36.2 g/dL (32.0-36.0); MEAN CORPUSCULAR VOLUME 85 fl (80-97); MONOCYTES % (AUTO) 9.1 % (3-13); RED BLOOD COUNT 5.36 10^6/uL (4.35-5.55); SEGMENTED NEUTROPHILS % (AUTO) 76.8 % (42-78)
[2017-01-16 11:33] LABS: ALANINE AMINOTRANSFERASE 43 U/L (21-72); ALBUMIN 4.8 g/dL (3.5-5.0); ALCOHOL 11 mg/dL (NONE DETECTED); ALKALINE PHOSPHATASE 101 U/L (38-126); ANION GAP 16 (5-19); ASPARTATE AMINO TRANSFERASE 35 U/L (17-59); BILIRUBIN,DIRECT 0.5 mg/dL (0.0-0.4); BILIRUBIN,TOTAL 1.2 mg/dL (0.2-1.3); BLOOD UREA NITROGEN 12 mg/dL (7-20); CALCIUM 9.4 mg/dL (8.4-10.2); CARBON DIOXIDE 25 mmol/L (22-30); CHLORIDE 102 mmol/L (98-107); CREATININE RESULT 0.97 mg/dL (0.52-1.25); GLUCOSE 104 mg/dL (75-110); POTASSIUM 4.5 mmol/L (3.6-5.0); SODIUM 142.9 mmol/L (137-145); TOTAL PROTEIN 7.6 g/dL (6.3-8.2)
--- NOTE | 2017-01-16 11:38 | ER Document Report ---
ED GI/ - General Chief Complaint: Abdominal Problem Stated Complaint: VOMITING ABDOMINAL PAIN Time Seen by Provider: 01/16/17 09:57 Notes: Patient has been experiencing epigastric abdominal pain for the past couple of days. Last night the pain became sharp and shooting and in the left upper quadrant. Patient has had these same symptoms in the past attributable to pancreatitis from alcohol. Patient says his last alcohol intake was about 1130 last night. He has 2 other prior visits to this emergency department for the same condition and was admitted for pancreatitis on both occasions. He says his vomiting is producing dark brown, bile colored vomitus with some red which could be blood. Does not have any blood in his bowel movements. Is not having diarrhea. Decreased urination. No fever, but has had cold sweats and hot flashes. No abdominal surgeries in the past. Patient was in the and chest got out 2 days ago. TRAVEL OUTSIDE OF THE [place] IN LAST 30 DAYS: No - Related Data Allergies/Adverse Reactions: No Known Allergies Allergy (Verified 01/16/17 09:47) Past Medical History - General Information source: Patient - Social History Smoking Status: Former Smoker Cigarette use (# per day): No Chew tobacco use (# tins/day): Yes Frequency of alcohol use: 1/5th a day Drug Abuse: Other Family History: Reviewed & Not Pertinent Patient has suicidal ideation: No Patient has homicidal ideation: No - Past Medical History Cardiac Medical History: Reports: Hx Hypertension - Not on any medications GI Medical History: Reports: Hx Gastroesophageal Reflux Disease Psychiatric Medical History: Reports: Hx Depression Past Surgical History: Reports: Hx Orthopedic Surgery - Left knee ACL repair, Hx Tonsillectomy, Other - [place] teeth extraction - Immunizations Immunizations up to date: Yes Hx Diphtheria, Pertussis, Tetanus Vaccination: Yes Review of Systems - Review of Systems Notes: REVIEW OF SYSTEMS: CONSTITUTIONAL : Denies fever. Having cold sweats and hot flashes. Patient's blood pressure is elevated at triage. EENT: Denies eye, ear, nose or mouth or throat pain or other symptoms. CARDIOVASCULAR: Denies chest pain. RESPIRATORY: Denies cough, chest congestion, or shortness of breath. GASTROINTESTINAL: See HPI. GENITOURINARY: Denies difficulty or painful urinating, urinary frequency, blood in urine. MUSCULOSKELETAL: Denies back or neck pain. Denies joint pain or swelling. SKIN: Denies rash or skin lesions. NEUROLOGICAL: Denies LOC or altered mental status. Denies headache. Denies sensory loss or motor deficits. ALL OTHER SYSTEMS REVIEWED AND NEGATIVE. Physical Exam - Vital signs Vitals: Temp Pulse Resp BP Pulse Ox 97.6 F 110 H 20 168/107 H 94 01/16/17 09:42 01/16/17 09:42 01/16/17 09:42 01/16/17 09:42 01/16/17 09:42 Interpretation: Hypertensive - Notes Notes: PHYSICAL EXAMINATION: GENERAL: Well-appearing, in no acute distress. Blood pressure elevated, 170/115 , at triage. HEAD: Atraumatic, normocephalic. ENT: oropharynx clear without exudates. Moist mucous membranes. NECK: Normal range of motion, supple. LUNGS: Breath sounds clear and equal bilaterally. HEART: Regular rate and rhythm without murmurs. ABDOMEN: Soft, tender epigastrium. No guarding or rebound. BACK: No tenderness throughout entire back. EXTREMITIES: Normal range of motion without pain. NEUROLOGICAL: Normal speech, normal gait. Normal sensory, motor, and reflex exams. Awake, alert, and oriented x3. Cranial nerves normal. PSYCH: Normal mood, normal affect. Anxious. SKIN: Warm, dry, no rashes. Course - Re-evaluation Re-evalutation: 01/16/17 12:15 Labs show a lipase of 2833. Remainder of labs are essentially unremarkable. Patient still complaining of pain, no relief with Toradol IV. Spoke with hospitalist on-call who will admit the patient to telemetry for fluids and pain control. Patient had a CT scan of his abdomen and a ultrasound of the right upper quadrant on his previous admission here in September. That workup resulted in finding pancreatitis with some fluid in the abdomen from the pancreatitis, but no other significant findings. - Vital Signs Vital signs: Temp Pulse Resp BP Pulse Ox 97.6 F 110 H 20 168/107 H 94 01/16/17 09:42 01/16/17 09:42 01/16/17 09:42 01/16/17 09:42 01/16/17 09:42 - Laboratory Result Diagrams: 01/16/17 10:52 01/16/17 10:52 Laboratory results interpreted by me: 01/16/17 01/16/17 10:52 10:52 MCHC 36.2 H RDW 15.0 H Direct Bilirubin 0.5 H Lipase 2833.1 H Discharge - Discharge Clinical Impression: Pancreatitis Condition: Stable Disposition: ADMITTED INPATIENT Admitting Provider: Hospitalist Unit Admitted: Telemetry
[2017-01-16 11:41] LABS: LIPASE 2833.1 U/L (23-300)
[2017-01-16] MEDS ORDERED: RINGERS SOLUTION,LACTATED 1,000 ML IV ONE (11:47)
[2017-01-16] MEDS ORDERED: HYDROMORPHONE HCL INJ/PF 2 MG/ML AMPULE IV ONE (12:15)
[2017-01-16] MEDS ORDERED: NORMAL SALINE 1000 ML 2,000 ML IV PRN (14:25)
[2017-01-16] MEDS ORDERED: NORMAL SALINE 1000 ML 1,000 ML IV PRN (14:40)
[2017-01-16] MEDS ORDERED: GLUCAGON,HUMAN RECOMB 1 MG INJ SUBCUT PRN (14:50)
[2017-01-16] MEDS ORDERED: DEXTROSE 40% GEL 15 GM TUBE PO PRN ×2 (14:50)
[2017-01-16] MEDS ORDERED: DEXTROSE 50%-WATER 25 GM/50 ML DISP.SYRIN IV PRN ×2 (14:50)
[2017-01-16] MEDS ORDERED: (PENDING PHARMACY ID) (Trazodone Hcl [Desyrel] 150 MG) PO PRN (14:53)
[2017-01-16] MEDS ORDERED: KETOROLAC TROMETHAMINE INJ/PF 30 MG/1 ML SDV IV PRN (14:59)
[2017-01-16] MEDS ORDERED: ONDANSETRON HCL INJ/PF 4 MG/2 ML SDV IV PRN (15:00)
[2017-01-16] MEDS ORDERED: TRAZODONE HCL 50 MG TABLET PO PRN (15:02)
--- NOTE | 2017-01-16 15:35 | PDOC H&P ---
History of Present Illness Admission Date/PCP: 01/16/17 12:31 History of Present Illness: DEBORAH HARDY is a 31 year old male admitted with alcoholic pancreatitis with elevated lipase. This is his third admission this year. Patient recently was on a 3 week binge and he recently discharged from the [facility] 2 days ago. patient is aware that he has a alcohol problem and has seek inpatient treatment in the past. Patient denies any suicidal ideation. He does have a underlying diagnosis of depression which he takes trazodone at bedtime for. He currently denies drugs or tobacco. He drinks approximately 1/5 of vodka a day. No other medical issues stated. Patient states he has had some nausea and vomiting and has went through DTs in the past. Denies any family history. Past Medical History Cardiac Medical History: Reports: Hypertension - Not on any medications Denies: Atrial Fibrillation, Congestive Heart Failure, Coronary Artery Disease, DVT, Myocardial Infarction, Hyperlipidema, Pulmonary Embolism Pulmonary Medical History: Denies: Asthma, Chronic Obstructive Pulmonary Disease (COPD), Sleep Apnea Neurological Medical History: Denies: Seizures Endocrine Medical History: Denies: Diabetes Mellitus Type 1, Diabetes Mellitus Type 2, Hyperthyroidism, Hypothyroidism GI Medical History: Reports: Gastroesophageal Reflux Disease Denies: Cirrhosis, Crohn's Disease, Diverticulitis, Hepatitis, Hiatal Hernia , Ulcerative Colitis Musculoskeltal Medical History: Denies: Arthritis Skin Medical History: Denies: Eczema, Psoriasis Psychiatric Medical History: Reports: Depression Infectious Medical History: Denies: Clostridium Difficile, HIV, Methicillin-Resistant Staph Aureus, Vancomycin-Resistant Enterococci Past Surgical History Past Surgical History: Reports: Orthopedic Surgery - Left knee ACL repair, Tonsillectomy, Other - [place] teeth extraction Social History Smoking Status: Former Smoker Frequency of Alcohol Use: Heavy Amount of Alcoholic Beverages Per Day: 1/5 per day Last Alcohol Use: 01/16/17 Hx Recreational Drug Use: No Drugs: None Hx Prescription Drug Abuse: Yes Family History Family History: Reviewed & Not Pertinent Parental Family History Reviewed: Yes Children Family History Reviewed: NA Sibling(s) Family History Reviewed.: NA Medication/Allergy Home Medications: Trazodone HCl [Desyrel] 150 mg PO HSP PRN 01/16/17 Allergies/Adverse Reactions: No Known Allergies Allergy (Verified 01/16/17 09:47) Review of Systems Constitutional: ABSENT: chills, fever(s), headache(s), weight gain, weight loss Eyes: ABSENT: visual disturbances Ears: ABSENT: hearing changes Cardiovascular: ABSENT: chest pain, dyspnea on exertion, edema, orthropnea, palpitations Respiratory: ABSENT: cough, hemoptysis Gastrointestinal: ABSENT: abdominal pain, constipation, diarrhea, hematemesis, hematochezia, nausea, vomiting Genitourinary: ABSENT: dysuria, hematuria Musculoskeletal: ABSENT: joint swelling Integumentary: ABSENT: rash, wounds Neurological: ABSENT: abnormal gait, abnormal speech, confusion, dizziness, focal weakness, syncope Psychiatric: ABSENT: anxiety, depression, homidical ideation, suicidal ideation Endocrine: ABSENT: cold intolerance, heat intolerance, polydipsia, polyuria Hematologic/Lymphatic: ABSENT: easy bleeding, easy bruising Physical Exam Vital Signs: Temp Pulse Resp BP Pulse Ox 98.4 F 102 H 21 H 150/80 H 93 01/16/17 13:47 01/16/17 09:47 01/16/17 14:01 01/16/17 14:01 01/16/17 14:01 General appearance: PRESENT: no acute distress, well-developed, well-nourished Head exam: PRESENT: atraumatic, normocephalic Eye exam: PRESENT: conjunctiva pink, EOMI, PERRLA. ABSENT: scleral icterus Ear exam: PRESENT: normal external ear exam Mouth exam: PRESENT: moist, tongue midline Neck exam: ABSENT: carotid bruit, JVD, lymphadenopathy, thyromegaly Respiratory exam: PRESENT: clear to auscultation lela. ABSENT: rales, rhonchi, wheezes Cardiovascular exam: PRESENT: RRR. ABSENT: diastolic murmur, rubs, systolic murmur Pulses: PRESENT: normal dorsalis pedis pul Vascular exam: PRESENT: normal capillary refill GI/Abdominal exam: PRESENT: normal bowel sounds, soft. ABSENT: distended, guarding, mass, organolmegaly, rebound, tenderness Rectal exam: PRESENT: deferred Extremities exam: PRESENT: full ROM. ABSENT: calf tenderness, clubbing, pedal edema Neurological exam: PRESENT: alert, awake, oriented to person, oriented to place , oriented to time, oriented to situation, CN II-XII grossly intact. ABSENT: motor sensory deficit Psychiatric exam: PRESENT: appropriate affect, normal mood. ABSENT: homicidal ideation, suicidal ideation Skin exam: PRESENT: dry, intact, warm. ABSENT: cyanosis, rash Assessment & Plan - Diagnosis (1) Alcohol abuse Plan: .Will admit patient forElevated lipase level secondary to alcohol abuse. Keep patient n.p.o. we will hydrate him and give him banana bag put him on Ativan alcohol withdrawal protocol. (2) Alcoholic pancreatitis Qualifiers: Chronicity: acute Acute pancreatitis complication: unspecified Qualified Code(s): K85.20 - Alcohol induced acute pancreatitis without necrosis or infection Is this a current diagnosis for this admission?: Yes Plan: Continue to monitor lipase levels. I will recheck it again in the morning if it is significantly decreased may consider advancing his diet slowly tomorrow. Monitor patient for DTs (3) Chronic alcoholism Is this a current diagnosis for this admission?: Yes Plan: Problem 1 had a long discussion with patient regarding alcohol cessation and need for rehab. Patient states he is currently going to be moving back to [place] which she will obtain outpatient rehab there.
[2017-01-16] MEDS: HYDROMORPHONE HCL INJ/PF 2 MG/ML AMPULE IV PRN ×2 (16:54→22:18)
[2017-01-16] MEDS: NORMAL SALINE 1000 ML 1,000 ML IV PRN (16:56)
[2017-01-16] MEDS: NORMAL SALINE 1000 ML 1,000 ML with POTASSIUM CHLORIDE 20 MEQ, MAGNESIUM SULFATE 8 MEQ,... IV SCH ×5 (17:25)
[2017-01-16] MEDS: LORAZEPAM INJ 2 MG/1 ML VIAL IV PRN (18:26)
[2017-01-17] MEDS: LORAZEPAM INJ 2 MG/1 ML VIAL IV PRN ×6 (00:55→19:52)
[2017-01-17] MEDS: HYDROMORPHONE HCL INJ/PF 2 MG/ML AMPULE IV PRN ×5 (02:21→19:42)
--- NOTE | 2017-01-17 08:53 | PDOC PROGRESS REPORT ---
Subjective Progress Note for:: 01/17/17 Subjective:: Abdominal pain Physical Exam Vital Signs: Temp Pulse Resp BP Pulse Ox 98.5 F 79 18 142/85 H 95 01/17/17 05:23 01/17/17 05:23 01/16/17 20:21 01/17/17 05:23 01/17/17 05:23 Intake & Output 01/16/17 01/17/17 01/18/17 06:59 06:59 06:59 Intake Total 1260 Balance 1260 General appearance: PRESENT: no acute distress, well-developed, well-nourished Head exam: PRESENT: atraumatic, normocephalic Eye exam: PRESENT: conjunctiva pink, EOMI, PERRLA. ABSENT: scleral icterus Ear exam: PRESENT: normal external ear exam Mouth exam: PRESENT: moist, tongue midline Neck exam: ABSENT: carotid bruit, JVD, lymphadenopathy, thyromegaly Respiratory exam: PRESENT: clear to auscultation lela. ABSENT: rales, rhonchi, wheezes Cardiovascular exam: PRESENT: RRR. ABSENT: diastolic murmur, rubs, systolic murmur Pulses: PRESENT: normal dorsalis pedis pul Vascular exam: PRESENT: normal capillary refill GI/Abdominal exam: PRESENT: normal bowel sounds, soft. ABSENT: distended, guarding, mass, organolmegaly, rebound, tenderness Rectal exam: PRESENT: deferred Extremities exam: PRESENT: full ROM. ABSENT: calf tenderness, clubbing, pedal edema Neurological exam: PRESENT: alert, awake, oriented to person, oriented to place , oriented to time, oriented to situation, CN II-XII grossly intact. ABSENT: motor sensory deficit Psychiatric exam: PRESENT: appropriate affect, normal mood. ABSENT: homicidal ideation, suicidal ideation Skin exam: PRESENT: dry, intact, warm. ABSENT: cyanosis, rash Results Laboratory Results: 01/17/17 08:01 Lipase 2874.7 H Assessment & Plan - Diagnosis (1) Alcoholic pancreatitis Qualifiers: Chronicity: acute Acute pancreatitis complication: unspecified Qualified Code(s): K85.20 - Alcohol induced acute pancreatitis without necrosis or infection Is this a current diagnosis for this admission?: Yes Plan: Continue to monitor lipase levels pedning. Abdominal pain has improved. Plan to advance diet to clear liquids today patient was informed to stop if abdominal pain occurs. Continue to monitor patient for DTs. We will decrease his IV pain medicines today (2) Alcohol abuse Is this a current diagnosis for this admission?: Yes Plan: .Will admit patient forElevated lipase level secondary to alcohol abuse. Keep patient n.p.o. we will hydrate him and give him banana bag put him on Ativan alcohol withdrawal protocol. Patient is currently on Ativan. (3) Chronic alcoholism Is this a current diagnosis for this admission?: Yes Plan: Problem 1 had a long discussion with patient regarding alcohol cessation and need for rehab. Patient states he is currently going to be moving back to [place] which she will obtain outpatient rehab there.
[2017-01-17] MEDS: ENOXAPARIN SODIUM INJ 30 MG/0.3 ML DISP.SYRIN SUBCUT SCH (09:50)
[2017-01-17] MEDS: NORMAL SALINE 1000 ML 1,000 ML IV PRN (15:44)
[2017-01-17] MEDS: NORMAL SALINE 1000 ML 1,000 ML with POTASSIUM CHLORIDE 20 MEQ, MAGNESIUM SULFATE 8 MEQ,... IV SCH ×5 (17:37)
[2017-01-18] MEDS: HYDROMORPHONE HCL INJ/PF 2 MG/ML AMPULE IV PRN ×2 (02:11→07:25)
[2017-01-18] MEDS: NORMAL SALINE 1000 ML 1,000 ML IV PRN (02:45)
[2017-01-18] MEDS: LORAZEPAM INJ 2 MG/1 ML VIAL IV PRN (06:33)
[2017-01-18 09:26] LABS: HGB HCT DIFFERENCE 2.8; MEAN CORPUSCULAR HGB CONC 35.8 g/dL (32.0-36.0); MEAN CORPUSCULAR VOLUME 87 fl (80-97); RED BLOOD COUNT 4.38 10^6/uL (4.35-5.55); RED CELL DISTRIBUTION WIDTH 14.6 % (11.5-14.0); WHITE BLOOD COUNT 3.6 10^3/uL (4.0-10.5)
[2017-01-18 09:28] LABS: HEMOGLOBIN 13.6 g/dL (13.5-17.0)
[2017-01-18 09:32] LABS: ANION GAP 12 (5-19); BLOOD UREA NITROGEN 9 mg/dL (7-20); CALCIUM 8.6 mg/dL (8.4-10.2); CARBON DIOXIDE 26 mmol/L (22-30); CHLORIDE 103 mmol/L (98-107); CREATININE RESULT 0.84 mg/dL (0.52-1.25); GLUCOSE 118 mg/dL (75-110); SODIUM 140.8 mmol/L (137-145)
[2017-01-18] MEDS: ENOXAPARIN SODIUM INJ 30 MG/0.3 ML DISP.SYRIN SUBCUT SCH (09:39)
[2017-01-18] MEDS ORDERED: HYDROCODONE/ACETAMINOPHEN 5-325 MG TABLET PO PRN (10:15)
[2017-01-18 13:53] VITALS: BP 158/93
--- NOTE | 2017-01-18 14:12 | PDOC DISCHARGE SUMMARY ---
General - Admit/Disc Date/PCP Admission Date/Primary Care Provider: 01/16/17 12:31 Discharge Date: 01/18/17 - Discharge Diagnosis (1) Alcoholic pancreatitis Is this a current diagnosis for this admission?: Yes (2) Alcohol abuse Is this a current diagnosis for this admission?: Yes (3) Chronic alcoholism Is this a current diagnosis for this admission?: Yes - Additional Information Discharge Diet: As Tolerated Discharge Activity: Activity As Tolerated Home Medications: Trazodone HCl [Desyrel] 150 mg PO HSP PRN 01/16/17 Hydrocodone/Acetaminophen [[place] 5-325 mg Tablet] 1 tab PO Q6HP PRN #20 tablet 01/18/17 History of Present Illness History of Present Illness: DEBORAH HARDY is a 31 year old male admitted with alcoholic pancreatitis with elevated lipase. This is his third admission this year. Patient recently was on a 3 week binge and he recently discharged from the [facility] 2 days ago. patient is aware that he has a alcohol problem and has seek inpatient treatment in the past. Patient denies any suicidal ideation. He does have a underlying diagnosis of depression which he takes trazodone at bedtime for. He currently denies drugs or tobacco. He drinks approximately 1/5 of vodka a day. No other medical issues stated. Patient states he has had some nausea and vomiting and has went through DTs in the past. Denies any family history. Hospital Course Hospital Course: Patient was kept n.p.o. was given moderate amounts of IV hydration he has had very good output. He had minimal to small amount of pain prior to discharge but he was able and ready to go home. He kept his regular food down without any nausea or vomiting or increasing abdominal pain. Encourage outpatient rehabilitation for education, counseling and cessation of alcohol Physical Exam Vital Signs: Temp Pulse Resp BP Pulse Ox 98.5 F 55 L 19 158/93 H 100 01/18/17 13:52 01/18/17 13:52 01/18/17 13:52 01/18/17 13:52 01/18/17 13:52 Intake & Output 01/17/17 01/18/17 01/19/17 06:59 06:59 06:59 Intake Total 1260 4969 0 Output Total 2 Balance 1260 4969 -2 Weight 119.4 kg General appearance: PRESENT: no acute distress, well-developed, well-nourished Head exam: PRESENT: atraumatic, normocephalic Eye exam: PRESENT: conjunctiva pink, EOMI, PERRLA. ABSENT: scleral icterus Ear exam: PRESENT: normal external ear exam Mouth exam: PRESENT: moist, tongue midline Neck exam: ABSENT: carotid bruit, JVD, lymphadenopathy, thyromegaly Respiratory exam: PRESENT: clear to auscultation lela. ABSENT: rales, rhonchi, wheezes Cardiovascular exam: PRESENT: RRR. ABSENT: diastolic murmur, rubs, systolic murmur Pulses: PRESENT: normal dorsalis pedis pul Vascular exam: PRESENT: normal capillary refill GI/Abdominal exam: PRESENT: normal bowel sounds, soft. ABSENT: distended, guarding, mass, organolmegaly, rebound, tenderness Rectal exam: PRESENT: deferred Extremities exam: PRESENT: full ROM. ABSENT: calf tenderness, clubbing, pedal edema Neurological exam: PRESENT: alert, awake, oriented to person, oriented to place , oriented to time, oriented to situation, CN II-XII grossly intact. ABSENT: motor sensory deficit Psychiatric exam: PRESENT: appropriate affect, normal mood. ABSENT: homicidal ideation, suicidal ideation Skin exam: PRESENT: dry, intact, warm. ABSENT: cyanosis, rash Results Laboratory Results: 01/18/17 08:59 01/18/17 08:59 01/18/17 01/18/17 08:59 08:59 WBC 3.6 L RBC 4.38 Hgb 13.6 D Hct 38.0 MCV 87 MCH 31.0 MCHC 35.8 RDW 14.6 H Plt Count 135 L Sodium 140.8 Potassium 4.0 Chloride 103 Carbon Dioxide 26 Anion Gap 12 BUN 9 Creatinine 0.84 Est GFR ( Amer) > 60 Est GFR (Non-Af Amer) > 60 Glucose 118 H Calcium 8.6 Lipase 1183.0 H Plan Discharge Plan: Very pleasant 31-year-old male recently been discharged from the [facility] came in with acute pancreatitis status post binge drinking past 3 weeks. Patient denies any history or recent use of drugs or tobacco. States he drinks approximately 1/5 of vodka a day or more he has went through DTs in the past he has not gone through any DTs during our hospitalization. Recommend patient continue on his trazodone at night. Patient was given a prescription for hydrocodone 5/325 one every 6 hours as needed abdominal pain #20 no refills. Encourage patient to seek outpatient rehabilitation for cessation of alcoholism. Time Spent: Less than 30 Minutes
== END 2017-01-18 14:00 | disposition home or self-care (01) | DRG 440 ==
LOC: ER 09:33 → EH 12:31 → 3N 14:12 → 3W 14:14
PROVIDERS: ADMIT Emergency Medicine; ATTEND Emergency Medicine
DX: K85.90 Acute pancreatitis without necrosis or infection, unspecified (principal); F10.20 Alcohol dependence, uncomplicated; F32.9 Major depressive disorder, single episode, unspecified; Z87.891 Personal history of nicotine dependence
CPT/HCPCS: 36415; 80048; 80053; 80307; 83690; 85025; 85027; 96361; 96374; 96375; 99285; J1170; J1200; J1650; J1885; J2060; J2765; J3411; J3475; J3480; J3490; J7030; S0119

== ENCOUNTER 2017-01-30 06:59 | Inpatient (IN) | payer OTHER ==
[2017-01-30] MEDS ORDERED: NORMAL SALINE 1000 ML 1,000 ML IV ONE ×2 (07:26→10:35)
--- NOTE | 2017-01-30 07:32 | ER Document Report ---
ED GI/ - General Mode of Arrival: Ambulatory Information source: Patient TRAVEL OUTSIDE OF THE [place] IN LAST 30 DAYS: No <KHLOE PAGAN - Last Filed: 01/30/17 08:36> <MARSHAL SEXTON - Last Filed: 01/30/17 12:24> - General Chief Complaint: Abdominal Pain Stated Complaint: ABDOMINAL PAIN Time Seen by Provider: 01/30/17 07:04 Notes: Patient is a 31 year old male that presents to the emergency department today with complaints of abdominal pain consistent with the patient's previous pancreatitis flare ups. Patient states he drank over a fifth of liquor yesterday. Patient states he has been a heavy drinker since turning 20. Patient states he has never attempted to receive help for his drinking problem. Patient states he got out of the [facility] on and is receiving [employer] pay. (KHLOE PAGAN) - Related Data Allergies/Adverse Reactions: No Known Allergies Allergy (Verified 01/16/17 09:47) Past Medical History - General Information source: Patient - Social History Smoking Status: Never Smoker Cigarette use (# per day): No Chew tobacco use (# tins/day): Yes Frequency of alcohol use: Heavy Family History: Reviewed & Not Pertinent Patient has suicidal ideation: No Patient has homicidal ideation: No - Past Medical History Cardiac Medical History: Reports: Hx Hypertension - Not on any medications GI Medical History: Reports: Hx Gastroesophageal Reflux Disease Psychiatric Medical History: Reports: Hx Depression Past Surgical History: Reports: Hx Orthopedic Surgery - Left knee ACL repair, Hx Tonsillectomy, Other - [place] teeth extraction - Immunizations Immunizations up to date: Yes Hx Diphtheria, Pertussis, Tetanus Vaccination: Yes <KHLOE PAGAN - Last Filed: 01/30/17 08:36> Review of Systems - Review of Systems Constitutional: No symptoms reported EENT: No symptoms reported Cardiovascular: No symptoms reported Respiratory: No symptoms reported Gastrointestinal: See HPI, Abdominal pain, Nausea, Vomiting Genitourinary: No symptoms reported Male Genitourinary: No symptoms reported Musculoskeletal: No symptoms reported Skin: No symptoms reported Hematologic/Lymphatic: No symptoms reported Neurological/Psychological: No symptoms reported -: Yes All other systems reviewed and negative <KHLOE PAGAN - Last Filed: 01/30/17 08:36> Physical Exam - Vital signs Interpretation: Normal - General General appearance: Alert In distress: Mild - secondary to pain - HEENT Head: Normocephalic, Atraumatic Eyes: Normal Pupils: PERRL Mucous membranes: Dry - Respiratory Respiratory status: No respiratory distress Chest status: Nontender Breath sounds: Normal Chest palpation: Normal - Cardiovascular Rhythm: Regular Heart sounds: Normal auscultation Murmur: No - Abdominal Inspection: Other - dull to percussion Distension: No distension Bowel sounds: Normal Tenderness: Tender - Left sided3 epigastric tenderness with palpation Organomegaly: No organomegaly - Back Back: Normal, Nontender - Extremities General upper extremity: Normal inspection, Normal ROM. No: Edema General lower extremity: Normal inspection, Normal ROM. No: Edema - Neurological Neuro grossly intact: Yes Cognition: Normal Orientation: AAOx4 Vicky Coma Scale Eye Opening: Spontaneous [place] Coma Scale Verbal: Oriented Vicky Coma Scale Motor: Obeys Commands [place] Coma Scale Total: 15 Speech: Normal - Psychological Associated symptoms: Depressed - Skin Skin Temperature: Warm Skin Moisture: Dry Skin Color: Normal <KHLOE PAGAN - Last Filed: 01/30/17 08:36> - Vital signs Vitals: Temp Pulse Resp BP Pulse Ox 97.9 F 72 18 171/90 H 95 01/30/17 07:03 01/30/17 07:03 01/30/17 07:03 01/30/17 07:03 01/30/17 07:03 Course - Laboratory Result Diagrams: 01/30/17 07:55 01/30/17 07:55 <KHLOE PAGAN - Last Filed: 01/30/17 08:36> - Laboratory Result Diagrams: 01/30/17 07:55 01/30/17 07:55 - EKG Interpretation by Oh EKG shows normal: Sinus rhythm, [place], Intervals, QRS Complexes, ST-T Waves Rate: Normal - 62 Rhythm: NSR - Consults Bianca Carreno NP Time consulted: 12:20 Consulted provider: will come to ER <MARSHAL SEXTON - Last Filed: 01/30/17 12:24> - Vital Signs Vital signs: Temp Pulse Resp BP Pulse Ox 97.9 F 72 18 140/94 H 93 01/30/17 07:03 01/30/17 07:03 01/30/17 11:01 01/30/17 11:01/30/17 11:00 - Laboratory Laboratory results interpreted by me: 01/30/17 01/30/17 07:55 07:55 RDW 14.6 H Sodium 146.0 H Lipase 511.0 H Discharge <KHLOE PAGAN - Last Filed: 01/30/17 08:36> - Discharge Admitting Provider: Hospitalist Unit Admitted: Medical Floor <MARSHAL SEXTON - Last Filed: 01/30/17 12:24> - Discharge Clinical Impression: Alcohol abuse Alcoholic pancreatitis Qualifiers: Chronicity: acute Acute pancreatitis complication: unspecified Qualified Code(s ): K85.20 - Alcohol induced acute pancreatitis without necrosis or infection Abdominal pain Qualifiers: Abdominal location: epigastric Qualified Code(s): R10.13 - Epigastric pain Nausea and vomiting Qualifiers: Vomiting type: unspecified Vomiting Intractability: non-intractable Qualified Code(s): R11.2 - Nausea with vomiting, unspecified Condition: Stable Disposition: ADMITTED OBSERVATION Scribe Attestation: 01/30/17 07:57 I personally performed the services described in the documentation, reviewed and edited the documentation which was dictated to the scribe in my presence, and it accurately records my words and actions. (MARSHAL SEXTON) Scribe Documentation - Scribe Written by Maxi:: Maxi Escalante, 01/30/2017 0833 acting as scribe for :: Fiordaliza <KHLOE PAGAN - Last Filed: 01/30/17 08:36>
[2017-01-30 08:04] LABS: ABSOLUTE LYMPHOCYTES (AUTO) 1.2 10^3/uL (0.5-4.7); ABSOLUTE MONOCYTES (AUTO) 0.4 10^3/uL (0.1-1.4); ABSOLUTE NEUT (AUTO) 5.2 10^3/uL (1.7-8.2); BASOPHILS % (AUTO) 0.6 % (0-2); EOSINOPHILS % (AUTO) 0.7 % (0-6); HEMATOCRIT 43.5 % (37.9-51.0); HEMOGLOBIN 15.5 g/dL (13.5-17.0); LYMPHOCYTES % (AUTO) 17.2 % (13-45); MEAN CORPUSCULAR HEMOGLOBIN 30.3 pg (27.0-33.4); MEAN CORPUSCULAR HGB CONC 35.6 g/dL (32.0-36.0); MEAN CORPUSCULAR VOLUME 85 fl (80-97); MONOCYTES % (AUTO) 5.8 % (3-13); RED BLOOD COUNT 5.11 10^6/uL (4.35-5.55); RED CELL DISTRIBUTION WIDTH 14.6 % (11.5-14.0); SEGMENTED NEUTROPHILS % (AUTO) 75.7 % (42-78); WHITE BLOOD COUNT 6.8 10^3/uL (4.0-10.5)
[2017-01-30 08:21] LABS: APPEARANCE,URINE CLEAR; BILIRUBIN,URINE NEGATIVE (NEGATIVE); GLUCOSE, URINE NEGATIVE (NEGATIVE); KETONES,URINE NEGATIVE (NEGATIVE); LEUKOCYTE ESTERASE,URINE NEGATIVE (NEGATIVE); NITRITE,URINE NEGATIVE (NEGATIVE); PROTEIN,URINE NEGATIVE (NEGATIVE); URINE SPECIFIC GRAVITY 1.018; UROBILINOGEN,URINE NEGATIVE mg/dL (<2.0)
[2017-01-30] MEDS ORDERED: HYDROMORPHONE HCL INJ/PF 2 MG/ML AMPULE IV ONE ×3 (08:23→15:00)
[2017-01-30 08:31] LABS: ALANINE AMINOTRANSFERASE 40 U/L (21-72); ALBUMIN 4.6 g/dL (3.5-5.0); ALCOHOL 91 mg/dL (NONE DETECTED); ALKALINE PHOSPHATASE 76 U/L (38-126); ANION GAP 15 (5-19); ASPARTATE AMINO TRANSFERASE 34 U/L (17-59); BILIRUBIN,DIRECT 0.3 mg/dL (0.0-0.4); BILIRUBIN,TOTAL 0.7 mg/dL (0.2-1.3); BLOOD UREA NITROGEN 13 mg/dL (7-20); CALCIUM 9.5 mg/dL (8.4-10.2); CARBON DIOXIDE 28 mmol/L (22-30); CHLORIDE 103 mmol/L (98-107); CREATINE KINASE 80 U/L (55-170); CREATININE RESULT 0.96 mg/dL (0.52-1.25); GLUCOSE 99 mg/dL (75-110); MAGNESIUM 1.6 mg/dL (1.6-2.3); POTASSIUM 4.9 mmol/L (3.6-5.0); TOTAL PROTEIN 7.2 g/dL (6.3-8.2)
[2017-01-30] MEDS ORDERED: ONDANSETRON HCL INJ/PF 4 MG/2 ML SDV IV ONE (11:12)
--- NOTE | 2017-01-30 13:11 | EKG REPORT ---
SEVERITY:- NORMAL ECG - SINUS RHYTHM : Confirmed by: Johan Hodges MD 30-Jan-2017 13:10:44
[2017-01-30] MEDS ORDERED: LORAZEPAM INJ 2 MG/1 ML VIAL IV ONE (14:45)
[2017-01-30] MEDS ORDERED: RINGERS SOLUTION 1,000 ML IV PRN (14:48)
[2017-01-30] MEDS ORDERED: LORAZEPAM INJ 2 MG/1 ML VIAL IV PRN (14:52)
[2017-01-30] MEDS ORDERED: HYDRALAZINE HCL INJ/PF 20 MG/1 ML SDV IV PRN (15:00)
[2017-01-30 16:30] LABS: HEMATOCRIT 44.8 % (37.9-51.0); HEMOGLOBIN 16.1 g/dL (13.5-17.0); HGB HCT DIFFERENCE 3.5; MEAN CORPUSCULAR HGB CONC 35.9 g/dL (32.0-36.0); MEAN CORPUSCULAR VOLUME 86 fl (80-97); RED BLOOD COUNT 5.18 10^6/uL (4.35-5.55); RED CELL DISTRIBUTION WIDTH 14.3 % (11.5-14.0); WHITE BLOOD COUNT 8.3 10^3/uL (4.0-10.5)
[2017-01-30] MEDS: LORAZEPAM INJ 2 MG/1 ML VIAL IV PRN ×3 (17:33→22:34)
--- NOTE | 2017-01-30 17:42 | PDOC H&P ---
History of Present Illness Admission Date/PCP: 01/30/17 12:33 Patient complains of: Abdominal pain History of Present Illness: DEBORAH HARDY is a 31 year old male whom I admitted last time for alcoholic pancreatitis. He presents again with the ER with lipase of 500 and is epigastric tenderness pain, discomfort nausea, dry heaves, patient did verbalize that he is undergoing a good bit of stress recently with has kindly asked him to resign. I admitted and discharge this patient through his last admission. He states he really wants to quit drinking. Over the holiday patient was alone and states he had been on a pretty significant binge. Presents to the ER with alcohol level 91. During my assessment patient was quite tearful. So at that time was suggested that we consult psych for him to be reevaluated for fear he is spinning out of control in which he agrees. Past Medical History Cardiac Medical History: Reports: Hypertension - Not on any medications Denies: Atrial Fibrillation, Congestive Heart Failure, Coronary Artery Disease, DVT, Myocardial Infarction, Hyperlipidema, Pulmonary Embolism Pulmonary Medical History: Denies: Asthma, Chronic Obstructive Pulmonary Disease (COPD), Sleep Apnea Neurological Medical History: Denies: Seizures Endocrine Medical History: Denies: Diabetes Mellitus Type 1, Diabetes Mellitus Type 2, Hyperthyroidism, Hypothyroidism GI Medical History: Reports: Gastroesophageal Reflux Disease Denies: Cirrhosis, Crohn's Disease, Diverticulitis, Hepatitis, Hiatal Hernia , Ulcerative Colitis Musculoskeltal Medical History: Denies: Arthritis Skin Medical History: Denies: Eczema, Psoriasis Psychiatric Medical History: Reports: Alcohol Dependency, Depression Infectious Medical History: Denies: Clostridium Difficile, HIV, Methicillin-Resistant Staph Aureus, Vancomycin-Resistant Enterococci Past Surgical History Past Surgical History: Reports: Orthopedic Surgery - Left knee ACL repair, Tonsillectomy, Other - [place] teeth extraction Social History Lives with: Alone Smoking Status: Former Smoker Frequency of Alcohol Use: Heavy Last Alcohol Use: 01/30/17 Hx Recreational Drug Use: No Drugs: None Hx Prescription Drug Abuse: No Family History Parental Family History Reviewed: No Children Family History Reviewed: NA Sibling(s) Family History Reviewed.: NA Medication/Allergy Home Medications: No Home Medications 01/30/17 Allergies/Adverse Reactions: No Known Allergies Allergy (Verified 01/16/17 09:47) Review of Systems Constitutional: ABSENT: chills, fever(s), headache(s), weight gain, weight loss Eyes: ABSENT: visual disturbances Ears: ABSENT: hearing changes Cardiovascular: ABSENT: chest pain, dyspnea on exertion, edema, orthropnea, palpitations Respiratory: ABSENT: cough, hemoptysis Gastrointestinal: PRESENT: abdominal pain, nausea, vomiting Genitourinary: ABSENT: dysuria, hematuria Musculoskeletal: ABSENT: joint swelling Integumentary: ABSENT: rash, wounds Neurological: ABSENT: abnormal gait, abnormal speech, confusion, dizziness, focal weakness, syncope Psychiatric: PRESENT: anxiety, depression Endocrine: ABSENT: cold intolerance, heat intolerance, polydipsia, polyuria Hematologic/Lymphatic: ABSENT: easy bleeding, easy bruising Physical Exam Vital Signs: Temp Pulse Resp BP Pulse Ox 98.6 F 68 17 163/93 H 94 01/30/17 15:38 01/30/17 15:38 01/30/17 15:38 01/30/17 15:38 01/30/17 15:38 Intake & Output 01/29/17 01/30/17 01/31/17 06:59 06:59 06:59 Intake Total 0 Balance 0 Weight 112.9 kg General appearance: PRESENT: mild distress, well-developed, well-nourished GI/Abdominal exam: PRESENT: guarding, tenderness Extremities exam: PRESENT: full ROM. ABSENT: calf tenderness, clubbing, pedal edema Neurological exam: PRESENT: alert, awake, oriented to person, oriented to place , oriented to time, oriented to situation, CN II-XII grossly intact. ABSENT: motor sensory deficit Psychiatric exam: PRESENT: agitated, anxious, depressed, flat affect Skin exam: PRESENT: dry, intact, warm. ABSENT: cyanosis, rash Results Laboratory Results: 01/30/17 16:13 01/30/17 16:13 WBC 8.3 RBC 5.18 Hgb 16.1 Hct 44.8 MCV 86 MCH 31.0 MCHC 35.9 RDW 14.3 H Plt Count 216 Assessment & Plan - Diagnosis (1) Abdominal pain Qualifiers: Abdominal location: epigastric Qualified Code(s): R10.13 - Epigastric pain (2) Alcohol abuse Is this a current diagnosis for this admission?: Yes (3) Alcoholic pancreatitis Qualifiers: Chronicity: acute Acute pancreatitis complication: unspecified Qualified Code(s): K85.20 - Alcohol induced acute pancreatitis without necrosis or infection Is this a current diagnosis for this admission?: Yes (4) Nausea and vomiting Qualifiers: Vomiting type: unspecified Vomiting Intractability: non-intractable Qualified Code(s): R11.2 - Nausea with vomiting, unspecified Is this a current diagnosis for this admission?: Yes (5) Chronic alcoholism Is this a current diagnosis for this admission?: Yes - Plan Summary Plan Summary: Admit patient for acute pancreatitis. Keep n.p.o. until abdominal pain improves. Patient was given IV Dilaudid and Ativan in the ER. Psych evaluation for possible consistent with anxiety/depression related to his most recent current events and losing his job with the . Patient is in agreement that he needs some help. I have suggested that he contact his parents since he has been given this a secret from them. I will the patient in a rally bag, IV fluids at 150 cc an hour, and monitor for signs of withdrawal. Will place patient on the telemetry.
[2017-01-30] MEDS: HYDROMORPHONE HCL INJ/PF 2 MG/ML AMPULE IV PRN ×2 (19:03→23:10)
[2017-01-30] MEDS ORDERED: PANTOPRAZOLE SODIUM 40 MG VIAL IV ONE (22:00)
[2017-01-30] MEDS: ONDANSETRON HCL INJ/PF 4 MG/2 ML SDV IV PRN (22:34)
[2017-01-30] MEDS: NORMAL SALINE 1000 ML 1,000 ML with POTASSIUM CHLORIDE 20 MEQ, MAGNESIUM SULFATE 8 MEQ,... IV SCH ×5 (22:43)
[2017-01-31] MEDS: LORAZEPAM INJ 2 MG/1 ML VIAL IV PRN ×7 (01:28→23:56)
[2017-01-31] MEDS: HYDROMORPHONE HCL INJ/PF 2 MG/ML AMPULE IV PRN ×4 (04:26→20:39)
[2017-01-31] MEDS: ONDANSETRON HCL INJ/PF 4 MG/2 ML SDV IV PRN ×2 (04:31→20:42)
[2017-01-31] MEDS ORDERED: RINGERS SOLUTION,LACTATED 1,000 ML IV PRN (06:23)
[2017-01-31 06:54] LABS: ANION GAP 12 (5-19); BLOOD UREA NITROGEN 14 mg/dL (7-20); CALCIUM 9.1 mg/dL (8.4-10.2); CARBON DIOXIDE 29 mmol/L (22-30); CHLORIDE 100 mmol/L (98-107); CREATININE RESULT 0.95 mg/dL (0.52-1.25); GLUCOSE 155 mg/dL (75-110); POTASSIUM 4.7 mmol/L (3.6-5.0); SODIUM 141.2 mmol/L (137-145)
[2017-01-31 07:07] LABS: LIPASE 2061.4 U/L (23-300)
[2017-01-31] MEDS: PANTOPRAZOLE SODIUM 40 MG VIAL IV SCH (10:26)
--- NOTE | 2017-01-31 11:35 | PSYCHOLOGICAL NOTE ---
Psych Note - Psych Note Psych Note: DEBORAH HARDY is a 31 year old male admitted for alcoholic pancreatitis. He states he really wants to quit drinking. Over the holiday patient was alone and states he had been on a pretty significant binge. Presents to the ER with alcohol level 91. Psychiatric consultation was requested because of patient's dysphoric mood, tearful affect, and disclosing that he would like to obtain sobriety. Patient disclosed that before he joined the [employer] he was in college. He states that while in college he would drink on the weekends. One weekend while drinking heavily his friends and he decided to join the [employer]. Patient disclosed that during the time from [employer] through [facility] it was "the longest time I was sober." Patient continued to state that he had a successful first term however this still included drinking heavily. 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 While deployed his girlfriend was rumored to cheat on him however he states it was never substantiated (they later ). 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 Patient was in a 5 month outpatient treatment program and then was put into [facility]. Patient confirms he was sober during those months (July 2014 until November 2014). Patient then attended a wedding where he drank. Since that wedding he has been drinking heavily again. He was coming up on [facility] minute and submitted for extension however was denied. Patient disclosed that he was honorably discharge and provided a severance package. He disclosed that he was selected for promotion however "I got into trouble." Patient disclosed that he was UA after binge drinking and blacking out. Patient was missing for 2 days which led to his discharge. Patient disclosed that he would like to try for sobriety. Patient is alert and orientated to person, place, time and circumstance. Mood is euthymic with congruent affect. Patient denies suicidal and homicidal ideation. Patient denies auditory visual hallucinations. Delusions are absent behaviors congruent with intact reality based presentation i.e. organized, linear, rational thinking. Eye contact was well-maintained. Conversational speech was within normal rate, tone and prosody. Intellectual abilities appear to be within the average range. Attention and concentration were good. Insight , judgment, impulse control appear to be poor due to alcoholism. 303.90 (F10.20) alcohol use disorder; severe 311 (F32.9) unspecified depressive disorder Impression\\plan: Patient is considered psychiatrically clear. Patient does not meet IVC criteria per [place] GS 122C. Patient denies suicidal and homicidal ideation. Delusions are absent behaviors congruent with intact reality based presentation i.e. organized, linear, rational thinking. Patient disclosed severe alcohol abuse which has affected all facets of his life. Patient states he is ready for sobriety. Patient still has for insurance, is recommended the patient contact the [facility] for detox. It is also recommended the patient follow-up with outpatient substance abuse treatment. Dr. Pearl was consulted and the care and management of this patient; attending physician in agreement with recommendations and disposition.
--- NOTE | 2017-01-31 17:23 | PDOC PROGRESS REPORT ---
Subjective Progress Note for:: 01/31/17 Subjective:: Alcoholic admitted with acute pancreatitis recurrent admissions. Patient does seem to be quite depressed. Appreciate Psych input but wanted some assistance with his depression medications that would not cause ED. Reason For Visit: ETOH PANCREATITIS Physical Exam Vital Signs: Temp Pulse Resp BP Pulse Ox 98.4 F 69 18 144/90 H 95 01/31/17 16:04 01/31/17 16:04 01/31/17 16:04 01/31/17 16:04 01/31/17 16:04 Intake & Output 01/30/17 01/31/17 02/01/17 06:59 06:59 06:59 Intake Total 1500 0 Output Total 700 Balance 1500 -700 Weight 112.5 kg Results Laboratory Results: 01/30/17 16:13 01/31/17 05:55 01/31/17 05:55 Sodium 141.2 Potassium 4.7 Chloride 100 Carbon Dioxide 29 Anion Gap 12 BUN 14 Creatinine 0.95 Est GFR ( Amer) > 60 Est GFR (Non-Af Amer) > 60 Glucose 155 H Calcium 9.1 Lipase 2061.4 H Assessment & Plan - Diagnosis (1) Abdominal pain Qualifiers: Abdominal location: epigastric Qualified Code(s): R10.13 - Epigastric pain Is this a current diagnosis for this admission?: Yes Plan: Acute pancreatitis significantly elevated lipase today from yesterday continues to have good bit of tenderness will advance to clear liquids per his request I have decreased his pain medicine to every 6 hours (2) Alcohol abuse Is this a current diagnosis for this admission?: Yes Plan: Long discussion with patient regarding alcohol cessation and outpatient rehab (3) Alcoholic pancreatitis Qualifiers: Chronicity: acute Acute pancreatitis complication: unspecified Qualified Code(s): K85.20 - Alcohol induced acute pancreatitis without necrosis or infection Is this a current diagnosis for this admission?: Yes Plan: Patient had elevated glucose today. Will check a hemoglobin A1c to evaluate diabetes recheck lipase in a.m. labs in (4) Nausea and vomiting Qualifiers: Vomiting type: unspecified Vomiting Intractability: non-intractable Qualified Code(s): R11.2 - Nausea with vomiting, unspecified Is this a current diagnosis for this admission?: Yes Plan: Improved stable. Continue IV fluid (5) Chronic alcoholism Is this a current diagnosis for this admission?: Yes
[2017-01-31] MEDS: NORMAL SALINE 1000 ML 1,000 ML with POTASSIUM CHLORIDE 20 MEQ, MAGNESIUM SULFATE 8 MEQ,... IV SCH ×5 (17:43)
[2017-02-01] MEDS: HYDROMORPHONE HCL INJ/PF 2 MG/ML AMPULE IV PRN ×3 (03:11→23:33)
[2017-02-01 05:17] LABS: ABSOLUTE EOSINOPHILS # (AUTO) 0.2 10^3/uL (0.0-0.6); ABSOLUTE LYMPHOCYTES (AUTO) 1.3 10^3/uL (0.5-4.7); ABSOLUTE MONOCYTES (AUTO) 0.5 10^3/uL (0.1-1.4); ABSOLUTE NEUT (AUTO) 4.4 10^3/uL (1.7-8.2); BASOPHILS % (AUTO) 0.7 % (0-2); EOSINOPHILS % (AUTO) 2.5 % (0-6); HEMATOCRIT 39.2 % (37.9-51.0); HGB HCT DIFFERENCE 2.8; LYMPHOCYTES % (AUTO) 20.9 % (13-45); MEAN CORPUSCULAR HEMOGLOBIN 30.9 pg (27.0-33.4); MEAN CORPUSCULAR HGB CONC 35.8 g/dL (32.0-36.0); MEAN CORPUSCULAR VOLUME 87 fl (80-97); MONOCYTES % (AUTO) 7.5 % (3-13); RED BLOOD COUNT 4.54 10^6/uL (4.35-5.55); RED CELL DISTRIBUTION WIDTH 14.1 % (11.5-14.0); SEGMENTED NEUTROPHILS % (AUTO) 68.4 % (42-78); WHITE BLOOD COUNT 6.4 10^3/uL (4.0-10.5)
[2017-02-01 05:31] LABS: APPEARANCE,URINE CLEAR; BILIRUBIN,URINE NEGATIVE (NEGATIVE); GLUCOSE, URINE NEGATIVE (NEGATIVE); KETONES,URINE NEGATIVE (NEGATIVE); LEUKOCYTE ESTERASE,URINE NEGATIVE (NEGATIVE); NITRITE,URINE NEGATIVE (NEGATIVE); PROTEIN,URINE 30 mg/dL (NEGATIVE); URINE SPECIFIC GRAVITY 1.029
[2017-02-01] MEDS: LORAZEPAM INJ 2 MG/1 ML VIAL IV PRN ×3 (05:32→17:53)
[2017-02-01 05:50] LABS: ALANINE AMINOTRANSFERASE 31 U/L (21-72); ALBUMIN 3.7 g/dL (3.5-5.0); ALKALINE PHOSPHATASE 68 U/L (38-126); ANION GAP 10 (5-19); ASPARTATE AMINO TRANSFERASE 20 U/L (17-59); BILIRUBIN,DIRECT 0.5 mg/dL (0.0-0.4); BILIRUBIN,TOTAL 1.4 mg/dL (0.2-1.3); BLOOD UREA NITROGEN 11 mg/dL (7-20); CALCIUM 8.9 mg/dL (8.4-10.2); CARBON DIOXIDE 28 mmol/L (22-30); CHLORIDE 100 mmol/L (98-107); CREATININE RESULT 0.88 mg/dL (0.52-1.25); GLUCOSE 93 mg/dL (75-110); SODIUM 138.1 mmol/L (137-145); TOTAL PROTEIN 6.2 g/dL (6.3-8.2)
[2017-02-01] MEDS: PANTOPRAZOLE SODIUM 40 MG VIAL IV SCH (09:36)
[2017-02-01] MEDS ORDERED: HYDROMORPHONE HCL INJ/PF 2 MG/ML AMPULE ONE ×2 (14:09→18:30)
[2017-02-01] MEDS ORDERED: DEXTROSE 50%-WATER 25 GM/50 ML DISP.SYRIN IV PRN ×2 (14:26)
[2017-02-01] MEDS ORDERED: GLUCAGON,HUMAN RECOMB 1 MG INJ SUBCUT PRN (14:26)
[2017-02-01] MEDS ORDERED: DEXTROSE 40% GEL 15 GM TUBE PO PRN ×2 (14:26)
[2017-02-01] MEDS ORDERED: HYDROMORPHONE HCL INJ/PF 2 MG/ML AMPULE IV ONE (14:30)
--- NOTE | 2017-02-01 17:06 | PDOC PROGRESS REPORT ---
Subjective Progress Note for:: 02/01/17 Subjective:: Alcoholic admitted with acute pancreatitis recurrent admissions. Patient does seem to be quite depressed. Appreciate Psych input but wanted some assistance with his depression medications that would not cause ED. we will discuss with patient tomorrow regarding starting on Wellbutrin. Patient continues to have a flat affect. Seen in the morning but was called again in the afternoon patient having worsening abdominal pain not taking in on a lot of p.o. liquids. But his pain medication increased frequency to every 6 instead of every 4 hours. I did go back and assess the patient he did appear be quite uncomfortable his lipase continues to go up. I have ordered a CT scan stat to rule out abscess disease process. Change diet but n.p.o. Change Dilaudid back to every 4 hours as needed. Reason For Visit: ETOH PANCREATITIS Physical Exam Vital Signs: Temp Pulse Resp BP Pulse Ox 98.3 F 62 18 147/88 H 98 02/01/17 16:06 02/01/17 16:06 02/01/17 16:06 02/01/17 16:06 02/01/17 16:06 Intake & Output 01/31/17 02/01/17 02/02/17 06:59 06:59 06:59 Intake Total 1500 3328 840 Output Total 900 Balance 1500 2428 840 Weight 112.5 kg 114.1 kg General appearance: PRESENT: mild distress, well-developed, well-nourished, other - Facial grimacing appears to be in pain Head exam: PRESENT: atraumatic, normocephalic Eye exam: PRESENT: conjunctiva pink, EOMI, PERRLA. ABSENT: scleral icterus Ear exam: PRESENT: normal external ear exam Mouth exam: PRESENT: moist, tongue midline Neck exam: ABSENT: carotid bruit, JVD, lymphadenopathy, thyromegaly Respiratory exam: PRESENT: clear to auscultation llea. ABSENT: rales, rhonchi, wheezes Cardiovascular exam: PRESENT: RRR. ABSENT: diastolic murmur, rubs, systolic murmur Pulses: PRESENT: normal dorsalis pedis pul Vascular exam: PRESENT: normal capillary refill GI/Abdominal exam: PRESENT: guarding, normal bowel sounds, rebound, soft, tenderness. ABSENT: distended, mass, organolmegaly Rectal exam: PRESENT: deferred Extremities exam: PRESENT: full ROM. ABSENT: calf tenderness, clubbing, pedal edema Neurological exam: PRESENT: alert, awake, oriented to person, oriented to place , oriented to time, oriented to situation, CN II-XII grossly intact. ABSENT: motor sensory deficit Psychiatric exam: PRESENT: depressed, flat affect. ABSENT: homicidal ideation, suicidal ideation Skin exam: PRESENT: dry, intact, warm. ABSENT: cyanosis, rash Results Laboratory Results: 02/01/17 04:09 02/01/17 04:09 02/01/17 02/01/17 02/01/17 04:09 04:09 05:05 WBC 6.4 RBC 4.54 Hgb 14.0 D Hct 39.2 MCV 87 MCH 30.9 MCHC 35.8 RDW 14.1 H Plt Count 169 Seg Neutrophils % 68.4 Lymphocytes % 20.9 Monocytes % 7.5 Eosinophils % 2.5 Basophils % 0.7 Absolute Neutrophils 4.4 Absolute Lymphocytes 1.3 Absolute Monocytes 0.5 Absolute Eosinophils 0.2 Absolute Basophils 0.0 Sodium 138.1 Potassium 4.0 Chloride 100 Carbon Dioxide 28 Anion Gap 10 BUN 11 Creatinine 0.88 Est GFR ( Amer) > 60 Est GFR (Non-Af Amer) > 60 Glucose 93 Calcium 8.9 Total Bilirubin 1.4 H AST 20 ALT 31 Alkaline Phosphatase 68 Total Protein 6.2 L Albumin 3.7 Lipase 801.0 H Urine Color JEIMY Urine Appearance CLEAR Urine pH 7.0 Ur Specific [place] 1.029 Urine Protein 30 H Urine Glucose (UA) NEGATIVE Urine Ketones NEGATIVE Urine Blood NEGATIVE Urine Nitrite NEGATIVE Ur Leukocyte Esterase NEGATIVE Ur Squamous Epith Cells RARE Assessment & Plan - Diagnosis (1) Abdominal pain Qualifiers: Abdominal location: epigastric Qualified Code(s): R10.13 - Epigastric pain Is this a current diagnosis for this admission?: Yes Plan: Acute pancreatitis significantly elevated lipase continued. Patient is having increased abdominal pain tenderness had to decrease his diet at n.p.o. Increased frequency for his pain medications IV. I have ordered a CT scan with IV and oral contrast as tolerated for rule out abscess or peritonitis (2) Alcohol abuse Is this a current diagnosis for this admission?: Yes Plan: Long discussion with patient regarding alcohol cessation and outpatient rehab. Continue to have multiple harvinder discussions with patient regarding alcohol cessation. I have suggested that patient take antidepressant probably will start him on some things like Wellbutrin that would not interfere much with ED and he possibly would be a good candidate for some ED medication prn. (3) Alcoholic pancreatitis Qualifiers: Chronicity: acute Acute pancreatitis complication: unspecified Qualified Code(s): K85.20 - Alcohol induced acute pancreatitis without necrosis or infection Is this a current diagnosis for this admission?: Yes Plan: Patient had elevated glucose. hemoglobin A1c normal. (4) Nausea and vomiting Qualifiers: Vomiting type: unspecified Vomiting Intractability: non-intractable Qualified Code(s): R11.2 - Nausea with vomiting, unspecified Is this a current diagnosis for this admission?: Yes (5) Chronic alcoholism Is this a current diagnosis for this admission?: Yes
[2017-02-01] MEDS: NORMAL SALINE 1000 ML 1,000 ML with POTASSIUM CHLORIDE 20 MEQ, MAGNESIUM SULFATE 8 MEQ,... IV SCH ×5 (17:52)
--- NOTE | 2017-02-01 18:00 | RADIOLOGY REPORT (SQ) ---
EXAM DESCRIPTION: CT ABD/PELVIS WITH IV ORAL COMPLETED DATE/TIME: 02/01/2017 5:30 pm REASON FOR STUDY: pancreatitis r/o abcess COMPARISON: 11/22/2015 TECHNIQUE: CT scan of the abdomen and pelvis performed using helical scanning technique with dynamic intravenous contrast injection. No oral contrast. Images reviewed with lung, soft tissue, and bone windows. Reconstructed coronal and sagittal MPR images reviewed. Delayed images for evaluation of the urinary system also acquired. All images stored on PACS. All CT scanners at this facility use dose modulation, iterative reconstruction, and/or weight based d osing when appropriate to reduce radiation dose to as low as reasonably achievable (ALARA). [facility]: Dose Right [facility]: CareDose [facility]: Dose Right [facility]: Teradose 4D [facility]: VINTAGEHUB CONTRAST TYPE AND DOSE: 100 mL Isovue 370- low osmolar. RENAL FUNCTION: GFR > 60. RADIATION DOSE: . LIMITATIONS: None. FINDINGS: LOWER CHEST: Subsegmental atelectasis and trace pleural fluid in both lower lobes. LIVER: Normal size. No masses. No dilated ducts. SPLEEN: Normal size. No focal lesions. PANCREAS: Moderate adjacent inflammation to the pancreas. No peripancreatic fluid collections. Pancr eatic duct not dilated. GALLBLADDER: No identified stones by CT criteria. No inflammatory changes to suggest cholecystitis. ADRENAL GLANDS: No significant masses or asymmetry. RIGHT KIDNEY AND URETER: No solid masses. No significant calcifications. No hydronephrosis or hyd roureter. LEFT KIDNEY AND URETER: No solid masses. No significant calcifications. No hydronephrosis or hydr oureter. AORTA AND VESSELS: No aneurysm. No dissection. Renal arteries, SMA, celiac without stenosis. RETROPERITONEUM: Mild upper retroperitoneal adenopathy. Small amount of fluid tracking in the parare nal spaces into the deep pelvis. BOWEL AND PERITONEAL CAVITY: No masses or inflammatory changes. No free fluid or peritoneal masses. APPENDIX: Normal. PELVIS: No mass. Trace free fluid. Normal bladder. ABDOMINAL WALL: No masses. No hernias. BONES: No significant or acute findings. OTHER: No other significant finding. IMPRESSION: Moderate pancreatitis. No peripancreatic fluid collections.Subsegmental atelectasis and trace pleural fluid in both lower lobes. TECHNICAL DOCUMENTATION: JOB ID: [id number] [place]-72 Quality ID # [id number]: Final reports with documentation of one or more dose reduction techniques (e.g., Au tomated exposure control, adjustment of the mA and/or kV according to patient size, use of iterative reconstruction technique) 2010 [employer]- All Rights Reserved
[2017-02-02] MEDS: LORAZEPAM INJ 2 MG/1 ML VIAL IV PRN ×4 (04:44→20:25)
[2017-02-02] MEDS: PANTOPRAZOLE SODIUM 40 MG VIAL IV SCH (09:19)
[2017-02-02] MEDS: HYDROMORPHONE HCL INJ/PF 2 MG/ML AMPULE IV PRN ×3 (09:19→19:41)
[2017-02-02] MEDS ORDERED: NORMAL SALINE 500 ML IV PRN (10:13)
[2017-02-02] MEDS: NORMAL SALINE 1000 ML 1,000 ML IV PRN (11:16)
--- NOTE | 2017-02-02 17:19 | PDOC PROGRESS REPORT ---
Subjective Progress Note for:: 02/02/17 Subjective:: Alcoholic admitted with acute pancreatitis recurrent admissions. Patient does seem to be quite depressed. Appreciate Psych input but wanted some assistance with his depression medications that would not cause ED. we will discuss with patient tomorrow regarding starting on Wellbutrin. Patient continues to have a flat affect. Seen in the morning but was called again in the afternoon patient having worsening abdominal pain not taking in on a lot of p.o. liquids. But his pain medication increased frequency to every 6 instead of every 4 hours. I did go back and assess the patient he did appear be quite uncomfortable his lipase continues to go up. I have ordered a CT scan stat to rule out abscess disease process. Change diet but n.p.o. Change Dilaudid back to every 4 hours as needed. Reason For Visit: ETOH PANCREATITIS patient was admitted with elevated alcohol level. Lipase was relatively low initially but it did spike up to greater than 2000 is within the first 24 hours of no alcohol. Patient was evaluated in the ER deemed medically safe and necessary not suicidal risk. Physical Exam Vital Signs: Temp Pulse Resp BP Pulse Ox 98.5 F 48 L 19 144/82 H 98 02/02/17 11:10 02/02/17 14:00 02/02/17 11:10 02/02/17 11:10 02/02/17 11:10 Intake & Output 02/01/17 02/02/17 02/03/17 06:59 06:59 06:59 Intake Total 3328 1840 Output Total 900 750 Balance 2428 1090 Weight 114.1 kg 113.9 kg General appearance: PRESENT: no acute distress, well-developed, well-nourished Head exam: PRESENT: atraumatic, normocephalic Eye exam: PRESENT: conjunctiva pink, EOMI, PERRLA. ABSENT: scleral icterus Ear exam: PRESENT: normal external ear exam Mouth exam: PRESENT: moist, tongue midline Neck exam: ABSENT: carotid bruit, JVD, lymphadenopathy, thyromegaly Respiratory exam: PRESENT: clear to auscultation lela. ABSENT: rales, rhonchi, wheezes Cardiovascular exam: PRESENT: RRR. ABSENT: diastolic murmur, rubs, systolic murmur Pulses: PRESENT: normal dorsalis pedis pul Vascular exam: PRESENT: normal capillary refill GI/Abdominal exam: PRESENT: normal bowel sounds, soft. ABSENT: distended, guarding, mass, organolmegaly, rebound, tenderness Rectal exam: PRESENT: deferred Extremities exam: PRESENT: full ROM. ABSENT: calf tenderness, clubbing, pedal edema Neurological exam: PRESENT: alert, awake, oriented to person, oriented to place , oriented to time, oriented to situation, CN II-XII grossly intact. ABSENT: motor sensory deficit Psychiatric exam: PRESENT: appropriate affect, normal mood. ABSENT: homicidal ideation, suicidal ideation Skin exam: PRESENT: dry, intact, warm. ABSENT: cyanosis, rash Results Laboratory Results: 02/01/17 04:09 02/01/17 04:09 Impressions: Abdomen/Pelvis CT 02/01/17 00:00 IMPRESSION: Moderate pancreatitis. No peripancreatic fluid collections.Subsegmental atelectasis and trace pleural fluid in both lower lobes. Assessment & Plan - Diagnosis (1) Abdominal pain Qualifiers: Abdominal location: epigastric Qualified Code(s): R10.13 - Epigastric pain Is this a current diagnosis for this admission?: Yes Plan: Acute pancreatitis significantly elevated lipase continued. Patient is having increased abdominal pain tenderness had to decrease his diet at n.p.o. Increased frequency for his pain medications IV. I have ordered a CT scan with IV and oral contrast as tolerated for rule out abscess or peritonitis CT scan negative but it did show increased inflammation around the pancreas. Slowly advance diet to clear liquids today. (2) Alcohol abuse Is this a current diagnosis for this admission?: Yes (3) Alcoholic pancreatitis Qualifiers: Chronicity: acute Acute pancreatitis complication: unspecified Qualified Code(s): K85.20 - Alcohol induced acute pancreatitis without necrosis or infection Is this a current diagnosis for this admission?: Yes (4) Nausea and vomiting Qualifiers: Vomiting type: unspecified Vomiting Intractability: non-intractable Qualified Code(s): R11.2 - Nausea with vomiting, unspecified Is this a current diagnosis for this admission?: Yes (5) Chronic alcoholism Is this a current diagnosis for this admission?: Yes (6) Depressive disorder Is this a current diagnosis for this admission?: Yes Plan: Start patient on Wellbutrin 75 mg p.o. twice daily. Encourage patient to monitor for monitor for signs of ED if he does well with Wellbutrin and I would treat the ED and not take him off the Wellbutrin patient was informed this. Discharge planning to arrange and set up for outpatient counseling to encourage him to have good outpatient follow-up once he leaves our state since he has been discharged from the returning to [place]. - Time Time Spent with patient: 35 or more minutes Anticipated discharge: Acute Rehab - Plan Summary Plan Summary: I have had multiple long lengthy discussions with patient about alcohol cessation withdrawals in need to abstain from any alcohol due to his chronic pancreatitis. Patient is severely depressed in which I recommend starting him on some Wellbutrin twice a day and would benefit from possibly even some ED medication for dysfunction in a young male. Patient states he has isolated himself he has a lot of risk factors for severely depressed he gets quite emotional and tearful but seems very appropriate and wants to get some help. He seems to be very unstable this hospitalization more so than his last hospitalization was I was his provider and it was because he was still going to work with the [employer] his last day was recently within the last month bilateral him to a deeper depression with isolation. Patient is requesting some outpatient assistance with counseling in [facility] in the town [place]. Patient is planning return to February 21. Will consult discharge planning site to set up outpatient counseling for his depression. Greater than 30 minutes counseling each day was given to this patient which revealed lots of isolation, anger, lack of willpower encourage him to contact his family to let him know where he is at because he has been missing.
[2017-02-02] MEDS: NORMAL SALINE 1000 ML 1,000 ML with POTASSIUM CHLORIDE 20 MEQ, MAGNESIUM SULFATE 8 MEQ,... IV SCH ×5 (17:50)
[2017-02-02] MEDS: BUPROPION HCL 75 MG TABLET PO SCH (21:25)
[2017-02-03] MEDS: HYDROMORPHONE HCL INJ/PF 2 MG/ML AMPULE IV PRN ×2 (00:09→08:59)
[2017-02-03] MEDS: NORMAL SALINE 1000 ML 1,000 ML IV PRN ×2 (00:47→09:06)
[2017-02-03] MEDS: BUPROPION HCL 75 MG TABLET PO SCH (09:07)
[2017-02-03] MEDS ORDERED: OXYCODONE HCL IR 5 MG TABLET PO PRN (09:19)
[2017-02-03] MEDS: DIAZEPAM 5 MG TABLET PO SCH ×2 (11:58→17:51)
--- NOTE | 2017-02-03 16:17 | PDOC DISCHARGE SUMMARY ---
General - Admit/Disc Date/PCP Admission Date/Primary Care Provider: 01/30/17 12:33 Discharge Date: 02/03/17 - Discharge Diagnosis (1) Pancreatitis Is this a current diagnosis for this admission?: Yes Summary: Patient was admitted with acute pancreatitis with elevated lipase of 2060, down to 801, and was associated with abdominal pain, nausea and vomiting in the setting of alcohol dependence with heavy use. He received supportive therapy with IV fluids, n.p.o. status, and IV narcotics. The patient's diet has since been advanced to a regular diet which he is tolerating well with low dose p.o. oxycodone for pain management. Today, the patient reports that he feels well enough for discharge to home with self care and does not agree to stay for alcohol detox or assistance in finding placement at an inpatient rehab. He is stable for discharge home today with self care. (2) Alcohol dependence Summary: Patient with alcohol dependence. He was treated with as needed IV Ativan and transitioned to p.o. scheduled Valium. He did meet with our social worker school to discuss community resources and opportunity for admission to the [facility] for inpatient rehabilitation. The patient tells me that at this time he is not interested in inpatient rehabilitation as he is planning to move back to [place] prior to [place] where he has been accepted to college and intends to pursue a bachelor's degree in biology. While inpatient, the patient did not show any overt signs of alcohol withdrawal. A long discussion was had today with regard to weaning off of Valium prior to discharge to ensure that he does not have withdrawal sx while at home; which the patient has declined. I also recommended that he seek a social support system, whether that be through Alcoholic Anonymous or with a sober family member or friend, to maintain sobriety. He will be prescribed a short prescription for Valium to assist with withdrawal symptoms. He was strongly advised against mixing Valium with alcohol as the risks include respiratory depression as well as . The patient clearly restates this risks back to me. (3) Abdominal pain Is this a current diagnosis for this admission?: Yes Summary: Improved. Secondary to pancreatitis. The patient is now tolerating a regular diet and pain is well-controlled with low-dose as needed oxycodone. (4) Nausea and vomiting Is this a current diagnosis for this admission?: Yes Summary: Resolved. The patient is not tolerating a regular diet and is no longer requiring antiemetics. (5) Depressive disorder Is this a current diagnosis for this admission?: Yes Summary: The patient was started on Wellbutrin for depression and encouraged to seek outpatient therapy for follow-up. No side effects have been noted. - Additional Information Discharge Diet: As Tolerated Discharge Activity: Balance Activity w/Rest, Slowly Increase Activity Home Medications: Bupropion HCl [Wellbutrin 75 mg Tablet] 75 mg PO Q12 #60 tablet 02/03/17 Diazepam [Valium 5 mg Tablet] 5 mg PO Q6 #20 tablet 02/03/17 Oxycodone HCl [Oxy-Ir 5 mg Tablet] 5 mg PO Q6HP PRN #12 tablet 02/03/17 History of Present Illness History of Present Illness: H&P per BEATA Dumas: DEBORAH HARDY is a 31 year old male whom I admitted last time for alcoholic pancreatitis. He presents again with the ER with lipase of 500 and is epigastric tenderness pain, discomfort nausea, dry heaves, patient did verbalize that he is undergoing a good bit of stress recently with has kindly asked him to resign. I admitted and discharge this patient through his last admission. He states he really wants to quit drinking. Over the holiday patient was alone and states he had been on a pretty significant binge. Presents to the ER with alcohol level 91. During my assessment patient was quite tearful. So at that time was suggested that we consult psych for him to be reevaluated for fear he is spinning out of control in which he agrees. Physical Exam Vital Signs: Temp Pulse Resp BP Pulse Ox 98.3 F 51 L 18 159/98 H 97 02/03/17 11:36 02/03/17 11:36 02/03/17 11:36 02/03/17 11:36 02/03/17 11:36 Intake & Output 02/02/17 02/03/17 02/04/17 06:59 06:59 06:59 Intake Total 1840 3200 804 Output Total 750 375 Balance 1090 2825 804 Weight 113.9 kg General appearance: PRESENT: no acute distress, well-developed, well-nourished, other - overweight Head exam: PRESENT: atraumatic, normocephalic Eye exam: PRESENT: conjunctiva pink, EOMI, PERRLA. ABSENT: scleral icterus Ear exam: PRESENT: normal external ear exam Mouth exam: PRESENT: moist, tongue midline Neck exam: ABSENT: carotid bruit, JVD, lymphadenopathy, thyromegaly Respiratory exam: PRESENT: clear to auscultation lela, symmetrical, unlabored. ABSENT: rales, rhonchi, wheezes Cardiovascular exam: PRESENT: RRR. ABSENT: diastolic murmur, rubs, systolic murmur Pulses: PRESENT: normal dorsalis pedis pul Vascular exam: PRESENT: normal capillary refill GI/Abdominal exam: PRESENT: normal bowel sounds, soft. ABSENT: distended, guarding, mass, organolmegaly, rebound, tenderness Rectal exam: PRESENT: deferred Extremities exam: PRESENT: full ROM. ABSENT: calf tenderness, clubbing, pedal edema Neurological exam: PRESENT: alert, awake, oriented to person, oriented to place , oriented to time, oriented to situation, CN II-XII grossly intact. ABSENT: motor sensory deficit Psychiatric exam: PRESENT: appropriate affect, normal mood. ABSENT: homicidal ideation, suicidal ideation Skin exam: PRESENT: dry, intact, warm. ABSENT: cyanosis, rash Results Laboratory Results: 02/01/17 04:09 02/01/17 04:09 Impressions: Abdomen/Pelvis CT 02/01/17 00:00 IMPRESSION: Moderate pancreatitis. No peripancreatic fluid collections.Subsegmental atelectasis and trace pleural fluid in both lower lobes.
[2017-02-03 17:48] VITALS: BP 153/89
== END 2017-02-03 18:00 | disposition home or self-care (01) | DRG 440 ==
LOC: ER 06:59 → EH 12:33 → OBSVTOIN 12:33 → 5 15:35
PROVIDERS: ADMIT Family Medicine; ATTEND Family Medicine
DX: K85.20 Alcohol induced acute pancreatitis without necrosis or infection (principal); F10.20 Alcohol dependence, uncomplicated; K86.0 Alcohol-induced chronic pancreatitis; Y90.4 Blood alcohol level of 80-99 mg/100 ml; F32.9 Major depressive disorder, single episode, unspecified; I10 Essential (primary) hypertension; Z87.891 Personal history of nicotine dependence; Z79.899 Other long term (current) drug therapy
CPT/HCPCS: 36415; 74177; 80048; 80053; 80307; 81001; 82550; 83036; 83690; 83735; 84484; 85025; 85027; 93005; 93010; 96361; 96374; 96375; 96376; 99285; J1170; J2060; J2405; J3411; J3475; J3480; J3490; J7030; J7040; J7120; S0164

== ENCOUNTER 2017-02-17 00:43 | Inpatient (IN) | payer OTHER ==
[2017-02-17] MEDS ORDERED: NORMAL SALINE 1000 ML 2,000 ML IV ONE (00:47)
[2017-02-17] MEDS ORDERED: MORPHINE SULFATE 10 MG/ML INJ IV PRN ×2 (00:47→03:38)
[2017-02-17] MEDS ORDERED: ONDANSETRON HCL INJ/PF 4 MG/2 ML SDV IV ONE (00:47)
--- NOTE | 2017-02-17 00:49 | ER Document Report ---
ED General - General Stated Complaint: LUQ ABDOMINAL PAIN Time Seen by Provider: 02/17/17 00:46 Notes: Patient is a 31-year-old male with a past medical history of recurrent alcoholic pancreatitis, chronic alcoholism, chronic tobacco dependence, depression, who presents with epigastric and right upper quadrant abdominal pain that started approximately 3 hours prior to arrival. Patient describes it as a severe, constant, stabbing pain to the upper abdomen. He notes severe associated vomiting. Nothing improves or worsens his symptoms. He states that he has been drinking alcohol again today and knows that this is triggered his symptoms. He states this feels identical to prior cases of pancreatitis that he has had in the past. He denies any associated fever, diarrhea, hematemesis, chest pain or shortness of breath TRAVEL OUTSIDE OF THE [place] IN LAST 30 DAYS: No - Related Data Allergies/Adverse Reactions: No Known Allergies Allergy (Verified 01/16/17 09:47) Past Medical History - General Information source: Patient - Social History Smoking Status: Current Every Day Smoker Frequency of alcohol use: Heavy Drug Abuse: None Lives with: Alone Family History: Reviewed & Not Pertinent - Past Medical History Cardiac Medical History: Reports: Hx Hypertension - Not on any medications Denies: Hx Atrial Fibrillation, Hx Congestive Heart Failure, Hx Coronary Artery Disease, Hx DVT, Hx Heart Attack, Hx Hypercholesterolemia, Hx Pulmonary Embolism Pulmonary Medical History: Denies: Hx Asthma, Hx COPD, Hx Sleep Apnea Neurological Medical History: Denies: Hx Seizures Endocrine Medical History: Denies: Hx Diabetes Mellitus Type 1, Hx Diabetes Mellitus Type 2, Hx Hyperthyroidism, Hx Hypothyroidism Renal/ Medical History: Denies: Hx Peritoneal Dialysis GI Medical History: Reports: Hx Gastroesophageal Reflux Disease. Denies: Hx Cirrhosis, Hx Crohn's Disease, Hx Diverticulitis, Hx Hepatitis, Hx Hiatal Hernia , Hx Ulcerative Colitis Musculoskeltal Medical History: Denies Hx Arthritis Skin Medical History: Denies Hx Eczema, Denies Hx Psoriasis Psychiatric Medical History: Reports: Hx Depression Infectious Medical History: Denies: Hx C-Diff, Hx Hepatitis, Hx HIV, Hx MRSA, Hx VRE Past Surgical History: Reports: Hx Orthopedic Surgery - Left knee ACL repair, Hx Tonsillectomy, Other - [place] teeth extraction - Immunizations Immunizations up to date: Yes Hx Diphtheria, Pertussis, Tetanus Vaccination: Yes Review of Systems - Review of Systems Notes: Constitutional: Negative for fever. HENT: Negative for sore throat. Eyes: Negative for visual changes. Cardiovascular: Negative for chest pain. Respiratory: Negative for shortness of breath. Gastrointestinal: Positive for abdominal pain and vomiting Genitourinary: Negative for dysuria. Musculoskeletal: Negative for back pain. Skin: Negative for rash. Neurological: Negative for headaches, weakness or numbness. 10 point ROS negative except as marked above and in HPI. Physical Exam - Vital signs Vitals: Temp Pulse Resp BP Pulse Ox 98.4 F 79 18 136/92 H 96 02/17/17 01:02 02/17/17 01:02 02/17/17 01:02 02/17/17 01:02 02/17/17 01:02 Interpretation: Normal Notes: PHYSICAL EXAMINATION: GENERAL: Appears moderately uncomfortable but in no acute distress HEAD: Atraumatic, normocephalic. EYES: Pupils equal round and reactive to light, extraocular movements intact, sclera anicteric, conjunctiva are normal. ENT: nares patent, oropharynx clear without exudates. Severely dry mucous membranes. NECK: Normal range of motion, supple without lymphadenopathy LUNGS: Breath sounds clear to auscultation bilaterally and equal. No wheezes rales or rhonchi. HEART: Regular tachycardia without murmurs ABDOMEN: Soft, Focal epigastric, left upper quadrant and right upper quadrant abdominal tenderness palpation without rebound or guarding. No lower abdominal tenderness EXTREMITIES: Normal range of motion, no pitting or edema. No cyanosis. NEUROLOGICAL: No focal neurological deficits. Moves all extremities spontaneously and on command. PSYCH: Normal mood, normal affect. SKIN: Warm, Dry, normal turgor, no rashes or lesions noted. Course - Re-evaluation Re-evalutation: 02/17/17 00:48 Patient presents obviously quite dehydrated with severe epigastric and left upper quadrant abdominal pain consistent with likely acute pancreatitis given clinical history of recurrent alcohol abuse and his symptoms starting after heavy use of alcohol tonight. He does have a history of the same and states this feels the same. Other than tachycardia at time of presentation his vitals are otherwise within normal limits. He is alert, oriented and appropriate on exam. He has no lower abdominal discomfort to suggest an acute appendicitis. Will proceed with labs, IV fluids, pain control, nausea control and reassess 02/17/17 03:49 Given initially low lipase level CT abdomen pelvis was obtained to evaluate for alternative etiologies will confirm my clinical suspicion of acute pancreatitis. CT does confirm a pattern of pancreatitis. I suspect the patient 's initial lipase elevation was quite mild as his symptoms started less than 2 hours prior to his initial evaluation. Review of prior records shows the patient has been hospitalized on 2 separate occasions with initial lipase level was only minimally elevated and then subsequent quadrupled the following day. I discussed this case with Dr. Winkler was accepted the patient for admission. I had a long conversation with the patient at the bedside about the need for emergent cessation of alcohol and have reviewed the consequences of ongoing heavy alcohol use with him. - Vital Signs Vital signs: Temp Pulse Resp BP Pulse Ox 98.4 F 79 18 136/92 H 96 02/17/17 01:02 02/17/17 01:02 02/17/17 01:02 02/17/17 01:02 02/17/17 01:02 - Laboratory Result Diagrams: 02/17/17 00:52 02/17/17 00:52 Laboratory results interpreted by me: 02/17/17 02/17/17 00:52 00:52 Lymphocytes % 46.2 H Sodium 146.5 H Glucose 120 H Lipase 312.3 H - Diagnostic Test Radiology reviewed: Reports reviewed Discharge - Discharge Clinical Impression: Chronic alcoholism Alcoholic pancreatitis Qualifiers: Chronicity: acute Acute pancreatitis complication: no infection or necrosis Qualified Code(s): K85.20 - Alcohol induced acute pancreatitis without necrosis or infection Condition: Fair Disposition: ADMITTED INPATIENT Admitting Provider: Rolando Winkler Unit Admitted: Telemetry
[2017-02-17 01:10] LABS: ABSOLUTE BASOPHILS # (AUTO) 0.1 10^3/uL (0.0-0.2); ABSOLUTE EOSINOPHILS # (AUTO) 0.1 10^3/uL (0.0-0.6); ABSOLUTE LYMPHOCYTES (AUTO) 3.1 10^3/uL (0.5-4.7); ABSOLUTE MONOCYTES (AUTO) 0.6 10^3/uL (0.1-1.4); ABSOLUTE NEUT (AUTO) 2.9 10^3/uL (1.7-8.2); EOSINOPHILS % (AUTO) 0.9 % (0-6); HEMATOCRIT 45.7 % (37.9-51.0); HEMOGLOBIN 16.1 g/dL (13.5-17.0); HGB HCT DIFFERENCE 2.6; LYMPHOCYTES % (AUTO) 46.2 % (13-45); MEAN CORPUSCULAR HGB CONC 35.2 g/dL (32.0-36.0); MEAN CORPUSCULAR VOLUME 85 fl (80-97); MONOCYTES % (AUTO) 8.7 % (3-13); RED BLOOD COUNT 5.36 10^6/uL (4.35-5.55); SEGMENTED NEUTROPHILS % (AUTO) 43.2 % (42-78); WHITE BLOOD COUNT 6.7 10^3/uL (4.0-10.5)
[2017-02-17 01:18] LABS: ALANINE AMINOTRANSFERASE 39 U/L (21-72); ALBUMIN 4.7 g/dL (3.5-5.0); ALKALINE PHOSPHATASE 79 U/L (38-126); ANION GAP 19 (5-19); ASPARTATE AMINO TRANSFERASE 34 U/L (17-59); BILIRUBIN,DIRECT 0.2 mg/dL (0.0-0.4); BILIRUBIN,TOTAL 0.5 mg/dL (0.2-1.3); BLOOD UREA NITROGEN 11 mg/dL (7-20); CALCIUM 9.3 mg/dL (8.4-10.2); CARBON DIOXIDE 25 mmol/L (22-30); CHLORIDE 103 mmol/L (98-107); CREATININE RESULT 1.06 mg/dL (0.52-1.25); GLUCOSE 120 mg/dL (75-110); LDH 604 U/L (313-618); LIPASE 312.3 U/L (23-300); POTASSIUM 4.3 mmol/L (3.6-5.0); SODIUM 146.5 mmol/L (137-145); TOTAL PROTEIN 7.4 g/dL (6.3-8.2)
[2017-02-17] MEDS ORDERED: MAG HYDROX/AL HYDROX/SIMETH SUSP 30 ML UDCUP PO ONE (01:55)
[2017-02-17] MEDS ORDERED: METOCLOPRAMIDE HCL ORAL SOLN 10 MG/10 ML UDCUP PO ONE (01:55)
[2017-02-17] MEDS ORDERED: LIDOCAINE 2% VISCOUS SOLN 20 ML UDCUP PO ONE (01:55)
[2017-02-17] MEDS ORDERED: HYDROMORPHONE HCL INJ/PF 2 MG/ML AMPULE IV ONE (02:00)
--- NOTE | 2017-02-17 02:56 | RADIOLOGY REPORT (SQ) ---
EXAM DESCRIPTION: CT ABD/PELVIS WITH IV ONLY CLINICAL HISTORY: 31 years Male, eval epigastric/luq pain COMPARISON: None. TECHNIQUE: This exam was performed according to our departmental dose-optimization program, which includes automated exposure control, adjustment of the mA and/or kV according to patient size and/or use of iterative reconstruction technique. FINDINGS: Moderate soft tissue inflammation surrounds the pancreas. Mild lymphadenopathy includes a 1 cm mesenteric lymph node of the right paracentral abdomen and 1.3 x 0.7 cm left periaortic retroperitoneal lymph node, image 50 of series 3. Inferior chest, liver, spleen, adrenals, gallbladder, renal system, gastrointestinal tract, vasculature, pelvic organs, and musculoskeleton appear otherwise unremarkable. IMPRESSION: Moderate pancreatitis pattern.
[2017-02-17] MEDS ORDERED: ACETAMINOPHEN 650 MG SUPP.RECT PR PRN (03:34)
[2017-02-17] MEDS ORDERED: HYDROMORPHONE HCL INJ/PF 2 MG/ML AMPULE IV PRN (03:48)
[2017-02-17] MEDS ORDERED: LORAZEPAM INJ 2 MG/1 ML VIAL IV PRN (03:49)
[2017-02-17 04:02] LABS: PROTHROMBIN TIME 12.9 SEC (11.4-15.4)
[2017-02-17] MEDS ORDERED: THIAMINE HCL INJ 200 MG/2 ML VIAL IV PRN (04:09)
[2017-02-17] MEDS ORDERED: FOLIC ACID INJ 5 MG/1 ML 10 ML VIAL IV PRN (04:10)
[2017-02-17] MEDS: DIAZEPAM 5 MG TABLET PO SCH ×4 (04:25→21:42)
[2017-02-17] MEDS ORDERED: THIAMINE HCL 100 MG, FOLIC ACID 1 MG in NORMAL SALINE 250 ML IV ONE (04:30)
--- NOTE | 2017-02-17 05:06 | PDOC H&P ---
History of Present Illness Admission Date/PCP: 02/17/17 03:57 History of Present Illness: DEBORAH HARDY is a 31 year old male with a PMH of alcoholic pancreatitis who presents with complaints of abdominal pain. Patient reports that he has been daily drinking and after drinking about 1/5 of vodka he subsequently developed intense midepigastric abdominal pain, nausea, vomiting. He reports it was a severe, constant, stabbing pain with radiation through to his back. Patient has been admitted/discharged on 01/30/17 through 02/03/17 for alcoholic pancreatitis. He is referred to the hospital service for evaluation and treatment of this condition. Past Medical History Cardiac Medical History: Reports: Hypertension - Not on any medications Denies: Atrial Fibrillation, Congestive Heart Failure, Coronary Artery Disease, DVT, Myocardial Infarction, Hyperlipidema, Pulmonary Embolism Pulmonary Medical History: Denies: Asthma, Chronic Obstructive Pulmonary Disease (COPD), Sleep Apnea Neurological Medical History: Denies: Seizures Endocrine Medical History: Denies: Diabetes Mellitus Type 1, Diabetes Mellitus Type 2, Hyperthyroidism, Hypothyroidism GI Medical History: Reports: Gastroesophageal Reflux Disease, Other - Pancreatitis Denies: Cirrhosis, Crohn's Disease, Diverticulitis, Hepatitis, Hiatal Hernia , Ulcerative Colitis Musculoskeltal Medical History: Denies: Arthritis Skin Medical History: Denies: Eczema, Psoriasis Psychiatric Medical History: Reports: Alcohol Dependency, Depression, Tobacco Dependency Infectious Medical History: Denies: Clostridium Difficile, HIV, Methicillin-Resistant Staph Aureus, Vancomycin-Resistant Enterococci Past Surgical History Past Surgical History: Reports: Orthopedic Surgery - Left knee ACL repair, Tonsillectomy, Other - [place] teeth extraction Social History Lives with: Alone Smoking Status: Current Every Day Smoker Frequency of Alcohol Use: Heavy Hx Recreational Drug Use: No Drugs: None Hx Prescription Drug Abuse: No - Advance Directive Resuscitation Status: Full Code Surrogate healthcare decision maker:: Jemal Hardy, father Family History Family History: Hypertension Parental Family History Reviewed: Yes Children Family History Reviewed: Yes Sibling(s) Family History Reviewed.: Yes Medication/Allergy Home Medications: Bupropion HCl [Wellbutrin 75 mg Tablet] 75 mg PO Q12 #60 tablet 02/03/17 Diazepam [Valium 2 mg Tablet] 2 mg PO Q6HP PRN #12 tablet 02/03/17 Oxycodone HCl [Oxy-Ir 5 mg Tablet] 5 mg PO Q6HP PRN #12 tablet 02/03/17 Allergies/Adverse Reactions: No Known Allergies Allergy (Verified 01/16/17 09:47) Review of Systems Constitutional: ABSENT: chills, fever(s), headache(s), weight gain, weight loss Eyes: ABSENT: visual disturbances Ears: ABSENT: hearing changes Cardiovascular: ABSENT: chest pain, dyspnea on exertion, edema, orthropnea, palpitations Respiratory: ABSENT: cough, hemoptysis Gastrointestinal: PRESENT: as per HPI, abdominal pain, nausea, vomiting. ABSENT : constipation, diarrhea, hematemesis, hematochezia, melena Genitourinary: ABSENT: dysuria, hematuria Musculoskeletal: ABSENT: joint swelling Integumentary: ABSENT: rash, wounds Neurological: ABSENT: abnormal gait, abnormal speech, confusion, dizziness, focal weakness, syncope Psychiatric: PRESENT: depression. ABSENT: anxiety, homidical ideation, suicidal ideation Endocrine: ABSENT: cold intolerance, heat intolerance, polydipsia, polyuria Hematologic/Lymphatic: ABSENT: easy bleeding, easy bruising Physical Exam Vital Signs: Temp Pulse Resp BP Pulse Ox 98.4 F 79 18 136/92 H 96 02/17/17 01:02 02/17/17 01:02 02/17/17 01:02 02/17/17 01:02 02/17/17 01:02 General appearance: PRESENT: mild distress, well-developed, well-nourished Head exam: PRESENT: atraumatic, normocephalic Eye exam: PRESENT: conjunctiva pink, EOMI, PERRLA. ABSENT: scleral icterus Ear exam: PRESENT: normal external ear exam Mouth exam: PRESENT: dry mucosa, tongue midline Neck exam: ABSENT: carotid bruit, JVD, lymphadenopathy, thyromegaly, tracheal deviation Respiratory exam: PRESENT: clear to auscultation lela. ABSENT: rales, rhonchi, wheezes Cardiovascular exam: PRESENT: RRR, +S1, +S2. ABSENT: diastolic murmur, rubs, systolic murmur Pulses: PRESENT: normal dorsalis pedis pul Vascular exam: PRESENT: normal capillary refill GI/Abdominal exam: PRESENT: guarding, normal bowel sounds, soft, tenderness - Midepigastric and right upper quadrant. ABSENT: distended, Escamilla's sign, rebound Rectal exam: PRESENT: deferred Extremities exam: PRESENT: full ROM. ABSENT: calf tenderness, clubbing, pedal edema Neurological exam: PRESENT: alert, awake, oriented to person, oriented to place , oriented to time, oriented to situation, CN II-XII grossly intact. ABSENT: motor sensory deficit Psychiatric exam: PRESENT: appropriate affect, normal mood. ABSENT: homicidal ideation, suicidal ideation Skin exam: PRESENT: dry, intact, warm. ABSENT: cyanosis, rash Results Laboratory Results: 02/01/17 02/17/17 02/17/17 04:09 00:52 00:52 WBC 6.7 Hgb 16.1 Hct 45.7 RDW 14.0 Sodium 146.5 H Potassium 4.3 Chloride 103 Carbon Dioxide 25 Anion Gap 19 BUN 11 Creatinine 1.06 Glucose 120 H Hemoglobin A1c % 4.9 Magnesium Lactate Dehydrogenase 604 Total Protein 7.4 Albumin 4.7 Lipase 312.3 H 02/17/17 00:52 WBC Hgb Hct RDW Sodium Potassium Chloride Carbon Dioxide Anion Gap BUN Creatinine Glucose Hemoglobin A1c % Magnesium 1.7 Lactate Dehydrogenase Total Protein Albumin Lipase Impressions: Abdomen/Pelvis CT 02/17/17 01:32 IMPRESSION: Moderate pancreatitis pattern. Status: Imported from PACS Assessment & Plan - Diagnosis (1) Alcoholic pancreatitis Qualifiers: Chronicity: acute Acute pancreatitis complication: no infection or necrosis Qualified Code(s): K85.20 - Alcohol induced acute pancreatitis without necrosis or infection Is this a current diagnosis for this admission?: Yes Plan: Patient will be monitored on telemetry for any arrhythmia. Patient will be placed on IV fluids and made n.p.o. Patient will be given Protonix IV Patient will be given Dilaudid as needed for pain (2) Chronic alcoholism Is this a current diagnosis for this admission?: Yes Plan: Monitor patient on telemetry for arrhythmia. Check magnesium. Scheduled po Valium. PRN IV Ativan for withdrawal symptoms. Place on thiamine, folic acid. Monitor for worsening symptomatology Patient is again counseled to stop using alcohol (3) Hypomagnesemia Is this a current diagnosis for this admission?: Yes Plan: Monitor on telemetry with concern for arrhythmia. Replete and recheck (4) Depressive disorder Is this a current diagnosis for this admission?: Yes (5) Tobacco dependence Is this a current diagnosis for this admission?: Yes (6) Hypernatremia Is this a current diagnosis for this admission?: Yes Plan: Secondary to intravascular volume depletion. Will recheck in a.m. (7) DVT prophylaxis Is this a current diagnosis for this admission?: Yes (8) Obesity (BMI 30.0-34.9) Is this a current diagnosis for this admission?: Yes - Time Time Spent: 30 to 50 Minutes Medications reviewed and adjusted accordingly: Yes Anticipated discharge: Home Within: Other - Upon improvement of symptomatology - Inpatient Certification Based on my medical assessment, after consideration of the patient's comorbidities, presenting symptoms, or acuity I expect that the services needed warrant INPATIENT care.: Yes I certify that my determination is in accordance with my understanding of Medicare's requirements for reasonable and necessary INPATIENT services [42 CFR 412.3e].: Yes Medical Necessity: Need For IV Fluids, Need for Pain Control Post Hospital Care: D/C [facility] Documentation
[2017-02-17 05:22] LABS: LDH 541 U/L (313-618)
[2017-02-17 05:37] LABS: C-REACTIVE PROTEIN < 5.0 mg/L (<10.0)
[2017-02-17] MEDS: HEPARIN SOD (PORCINE) 5,000 UNIT/ML 1 ML SYRINGE SUBCUT SCH ×3 (06:31→21:42)
[2017-02-17] MEDS: ONDANSETRON HCL INJ/PF 4 MG/2 ML SDV IV PRN ×2 (07:58→14:30)
[2017-02-17] MEDS: PANTOPRAZOLE SODIUM 40 MG VIAL IV SCH (09:08)
[2017-02-17] MEDS: LORAZEPAM INJ 2 MG/1 ML VIAL IV PRN ×4 (09:17→21:42)
[2017-02-17] MEDS: HYDROMORPHONE HCL INJ/PF 2 MG/ML AMPULE IV PRN ×6 (09:40→23:43)
[2017-02-17] MEDS ORDERED: DIPHENHYDRAMINE HCL 25 MG CAPSULE PO ONE (11:00)
[2017-02-17] MEDS: NORMAL SALINE 1000 ML 1,000 ML IV PRN ×3 (13:27→23:44)
--- NOTE | 2017-02-17 13:31 | PDOC PROGRESS REPORT ---
Subjective Progress Note for:: 02/17/17 Subjective:: The patient is seen on morning rounds for follow-up of alcoholic pancreatitis. He is found sitting upright in bed in obvious discomfort. He reports continued nausea and vomiting with subsequent worsening of epigastric abdominal pain. He states that the pain medication has been beneficial, however, wears off after approximately 1 hour. He also reports worsening anxiety. He states that he he has been on multiple SSRIs/SSNRIs without relief of generalized anxiety symptoms. He denies use of prescribed or otherwise obtained benzodiazepines for management of his anxiety. He has no new questions or concerns today. Reason For Visit: ACUTE PANCREATITIS Physical Exam Vital Signs: Temp Pulse Resp BP Pulse Ox 98.9 F 68 19 168/98 H 97 02/17/17 07:54 02/17/17 09:41 02/17/17 07:54 02/17/17 07:54 02/17/17 07:54 General appearance: PRESENT: no acute distress, well-developed, well-nourished, other - Acutely ill appearing Head exam: PRESENT: atraumatic, normocephalic Eye exam: PRESENT: conjunctiva pink, EOMI, PERRLA. ABSENT: scleral icterus Ear exam: PRESENT: normal external ear exam Mouth exam: PRESENT: moist, tongue midline Neck exam: ABSENT: carotid bruit, JVD, lymphadenopathy, thyromegaly Respiratory exam: PRESENT: clear to auscultation lela, symmetrical, unlabored. ABSENT: rales, rhonchi, wheezes Cardiovascular exam: PRESENT: RRR, +S1, +S2. ABSENT: diastolic murmur, rubs, systolic murmur Pulses: PRESENT: normal dorsalis pedis pul Vascular exam: PRESENT: normal capillary refill GI/Abdominal exam: PRESENT: normal bowel sounds, soft, tenderness - Epigastric; not especially worsened by palpation. ABSENT: distended, guarding, mass, organolmegaly, rebound Rectal exam: PRESENT: deferred Extremities exam: PRESENT: full ROM. ABSENT: calf tenderness, clubbing, pedal edema Neurological exam: PRESENT: alert, awake, oriented to person, oriented to place , oriented to time, oriented to situation, CN II-XII grossly intact. ABSENT: motor sensory deficit Psychiatric exam: PRESENT: appropriate affect, normal mood. ABSENT: homicidal ideation, suicidal ideation Skin exam: PRESENT: dry, intact, warm, other - Diaphoretic. ABSENT: cyanosis, rash Results Laboratory Results: 02/17/17 04:19 C-Reactive Protein < 5.0 Impressions: Abdomen/Pelvis CT 02/17/17 01:32 IMPRESSION: Moderate pancreatitis pattern. Assessment & Plan - Diagnosis (1) Alcoholic pancreatitis Qualifiers: Chronicity: acute Acute pancreatitis complication: no infection or necrosis Qualified Code(s): K85.20 - Alcohol induced acute pancreatitis without necrosis or infection Is this a current diagnosis for this admission?: Yes Plan: The patient has been admitted to the floor on continuous cardiac telemetry. He is receiving IV fluid replacement. He will remain n.p.o. while acutely ill. Continue IV Protonix daily. He is provided IV Dilaudid and Zofran as needed. (2) Hypernatremia Is this a current diagnosis for this admission?: Yes Plan: Secondary to dehydration related to nausea and vomiting. He is receiving normal saline IV fluid replacement. Will to need to monitor with serial BMPs. (3) Anxiety Is this a current diagnosis for this admission?: Yes Plan: We will continue patient's home medication; trazodone. He is receiving scheduled Valium and as needed Lorazepam for alcohol withdrawal protocol. (4) Chronic alcoholism Is this a current diagnosis for this admission?: Yes Plan: The patient will receive daily thiamine and folic acid supplementation. Alcohol withdrawal protocol as above. Will ask discharge planning to meet with the patient to provide information on social resources and outpatient rehabilitation programs. (5) Depressive disorder Is this a current diagnosis for this admission?: Yes (6) Tobacco dependence Is this a current diagnosis for this admission?: Yes Plan: Smoking cessation is encouraged. Nicotine replacement therapies are offered and declined at this time. (7) Hypomagnesemia Is this a current diagnosis for this admission?: Yes Plan: Replete. (8) Obesity (BMI 30.0-34.9) Is this a current diagnosis for this admission?: Yes - Time Time Spent with patient: 15-24 minutes Medications reviewed and adjusted accordingly: Yes
[2017-02-17] MEDS: TRAZODONE HCL 50 MG TABLET PO SCH (21:42)
[2017-02-17] MEDS ORDERED: (PENDING PHARMACY ID) (Trazodone Hcl [Desyrel] 150 MG) PO SCH (22:00)
[2017-02-18] MEDS: LORAZEPAM INJ 2 MG/1 ML VIAL IV PRN ×6 (00:55→22:24)
[2017-02-18] MEDS: HYDROMORPHONE HCL INJ/PF 2 MG/ML AMPULE IV PRN ×7 (03:48→23:38)
[2017-02-18] MEDS: DIAZEPAM 5 MG TABLET PO SCH ×4 (03:48→22:23)
[2017-02-18 05:06] LABS: ABSOLUTE EOSINOPHILS # (AUTO) 0.1 10^3/uL (0.0-0.6); ABSOLUTE LYMPHOCYTES (AUTO) 1.2 10^3/uL (0.5-4.7); ABSOLUTE MONOCYTES (AUTO) 0.5 10^3/uL (0.1-1.4); BASOPHILS % (AUTO) 0.6 % (0-2); EOSINOPHILS % (AUTO) 1.2 % (0-6); HEMATOCRIT 43.7 % (37.9-51.0); HEMOGLOBIN 15.5 g/dL (13.5-17.0); HGB HCT DIFFERENCE 2.8; MEAN CORPUSCULAR HEMOGLOBIN 30.8 pg (27.0-33.4); MEAN CORPUSCULAR HGB CONC 35.5 g/dL (32.0-36.0); MEAN CORPUSCULAR VOLUME 87 fl (80-97); RED BLOOD COUNT 5.04 10^6/uL (4.35-5.55); RED CELL DISTRIBUTION WIDTH 13.9 % (11.5-14.0); SEGMENTED NEUTROPHILS % (AUTO) 73.2 % (42-78); WHITE BLOOD COUNT 6.8 10^3/uL (4.0-10.5)
[2017-02-18 05:27] LABS: ALANINE AMINOTRANSFERASE 28 U/L (21-72); ALBUMIN 3.7 g/dL (3.5-5.0); ALKALINE PHOSPHATASE 86 U/L (38-126); ANION GAP 10 (5-19); ASPARTATE AMINO TRANSFERASE 20 U/L (17-59); BILIRUBIN,DIRECT 0.3 mg/dL (0.0-0.4); BILIRUBIN,TOTAL 1.6 mg/dL (0.2-1.3); BLOOD UREA NITROGEN 11 mg/dL (7-20); CALCIUM 8.5 mg/dL (8.4-10.2); CARBON DIOXIDE 26 mmol/L (22-30); CHLORIDE 105 mmol/L (98-107); CREATININE RESULT 0.97 mg/dL (0.52-1.25); GLUCOSE 104 mg/dL (75-110); MAGNESIUM 1.5 mg/dL (1.6-2.3); POTASSIUM 4.3 mmol/L (3.6-5.0); SODIUM 140.5 mmol/L (137-145); TOTAL PROTEIN 6.2 g/dL (6.3-8.2)
[2017-02-18] MEDS: HEPARIN SOD (PORCINE) 5,000 UNIT/ML 1 ML SYRINGE SUBCUT SCH ×3 (05:31→22:24)
[2017-02-18] MEDS: NORMAL SALINE 1000 ML 1,000 ML IV PRN ×3 (05:31→19:43)
[2017-02-18] MEDS ORDERED: MAGNESIUM OXIDE 400 MG TABLET PO ONE (08:00)
[2017-02-18] MEDS: PANTOPRAZOLE SODIUM 40 MG VIAL IV SCH (10:15)
--- NOTE | 2017-02-18 13:14 | PDOC PROGRESS REPORT ---
Subjective Progress Note for:: 02/18/17 Subjective:: The patient is seen on morning rounds for follow-up of alcoholic pancreatitis. He is found resting in bed comfortably. He states that his last episode of emesis was last night. He does report that he has been drinking copious amounts of water from the sink without worsening abdominal pain, nausea or vomiting. He does request to have his diet advanced today to clear liquids. We had a long discussion regarding the pacing of advancing his diet in consideration of his continued need for IV pain medications. The patient states that he is very concerned that he be discharged by tomorrow afternoon so that he may proceed with his plan to move out of state this weekend. He states that he has a moving company scheduled to come to his house the morning of the . Otherwise he has no new questions or concerns today. Reason For Visit: ACUTE PANCREATITIS Physical Exam Vital Signs: Temp Pulse Resp BP Pulse Ox 98.2 F 73 18 132/98 H 97 02/18/17 07:34 02/18/17 07:34 02/18/17 07:34 02/18/17 08:00 02/18/17 07:34 Intake & Output 02/17/17 02/18/17 02/19/17 06:59 06:59 06:59 Intake Total 4340 Output Total 1025 Balance 3315 Weight 120.9 kg General appearance: PRESENT: no acute distress, obese, well-developed, well- nourished Head exam: PRESENT: atraumatic, normocephalic Eye exam: PRESENT: conjunctiva pink, EOMI, PERRLA. ABSENT: scleral icterus Ear exam: PRESENT: normal external ear exam Mouth exam: PRESENT: moist, tongue midline Neck exam: ABSENT: carotid bruit, JVD, lymphadenopathy, thyromegaly Respiratory exam: PRESENT: clear to auscultation lela, symmetrical, unlabored. ABSENT: rales, rhonchi, wheezes Cardiovascular exam: PRESENT: RRR, +S1, +S2. ABSENT: diastolic murmur, rubs, systolic murmur Pulses: PRESENT: normal dorsalis pedis pul Vascular exam: PRESENT: normal capillary refill GI/Abdominal exam: PRESENT: normal bowel sounds, soft. ABSENT: distended, guarding, mass, organolmegaly, rebound, tenderness Rectal exam: PRESENT: deferred Extremities exam: PRESENT: full ROM. ABSENT: calf tenderness, clubbing, pedal edema Neurological exam: PRESENT: alert, awake, oriented to person, oriented to place , oriented to time, oriented to situation, CN II-XII grossly intact. ABSENT: motor sensory deficit Psychiatric exam: PRESENT: appropriate affect, normal mood. ABSENT: homicidal ideation, suicidal ideation Skin exam: PRESENT: dry, intact, warm. ABSENT: cyanosis, rash Results Laboratory Results: 02/18/17 04:33 02/18/17 04:33 02/18/17 02/18/17 04:33 04:33 WBC 6.8 RBC 5.04 Hgb 15.5 Hct 43.7 MCV 87 MCH 30.8 MCHC 35.5 RDW 13.9 Plt Count 156 Seg Neutrophils % 73.2 Lymphocytes % 18.0 Monocytes % 7.0 Eosinophils % 1.2 Basophils % 0.6 Absolute Neutrophils 5.0 Absolute Lymphocytes 1.2 Absolute Monocytes 0.5 Absolute Eosinophils 0.1 Absolute Basophils 0.0 Sodium 140.5 Potassium 4.3 Chloride 105 Carbon Dioxide 26 Anion Gap 10 BUN 11 Creatinine 0.97 Est GFR ( Amer) > 60 Est GFR (Non-Af Amer) > 60 Glucose 104 Calcium 8.5 Magnesium 1.5 L Total Bilirubin 1.6 H AST 20 ALT 28 Alkaline Phosphatase 86 Total Protein 6.2 L Albumin 3.7 Impressions: Abdomen/Pelvis CT 02/17/17 01:32 IMPRESSION: Moderate pancreatitis pattern. Assessment & Plan - Diagnosis (1) Alcoholic pancreatitis Qualifiers: Chronicity: acute Acute pancreatitis complication: no infection or necrosis Qualified Code(s): K85.20 - Alcohol induced acute pancreatitis without necrosis or infection Is this a current diagnosis for this admission?: Yes Plan: The patient has been admitted to the floor on continuous cardiac telemetry. He is receiving IV fluid replacement. Continue IV Protonix daily. The patient admits to drinking water from the sink and so his diet will be advanced to a clear liquid diet today. He continues on IV Dilaudid, though will reduce the frequency of dosing and anticipate transition to oral medications in the morning. Zofran as needed for nausea and vomiting. (2) Hypernatremia Is this a current diagnosis for this admission?: Yes Plan: Resolved. Secondary to dehydration related to nausea and vomiting. He continues to receive normal saline IV fluid replacement. (3) Anxiety Is this a current diagnosis for this admission?: Yes Plan: We will continue patient's home medication; trazodone. He is receiving scheduled Valium and as needed Lorazepam for alcohol withdrawal protocol. Will begin weaning lorazepam today. (4) Chronic alcoholism Is this a current diagnosis for this admission?: Yes Plan: The patient will receive daily thiamine and folic acid supplementation. Alcohol withdrawal protocol as above. Will ask discharge planning to meet with the patient to provide information on social resources and outpatient rehabilitation programs. (5) Depressive disorder Is this a current diagnosis for this admission?: Yes (6) Tobacco dependence Is this a current diagnosis for this admission?: Yes Plan: Smoking cessation is encouraged. Nicotine replacement therapies are offered and declined at this time. (7) Hypomagnesemia Is this a current diagnosis for this admission?: Yes Plan: Replete. (8) Obesity (BMI 30.0-34.9) Is this a current diagnosis for this admission?: Yes - Time Time Spent with patient: 15-24 minutes Smoking Cessation Education: 3 to 10 minutes Medications reviewed and adjusted accordingly: Yes Anticipated discharge: Home Within: within 36 hours
[2017-02-18] MEDS: BUPROPION HCL 75 MG TABLET PO SCH (22:23)
[2017-02-18] MEDS: TRAZODONE HCL 50 MG TABLET PO SCH (22:25)
[2017-02-19] MEDS: HYDROMORPHONE HCL INJ/PF 2 MG/ML AMPULE IV PRN (03:19)
[2017-02-19] MEDS: NORMAL SALINE 1000 ML 1,000 ML IV PRN (03:20)
[2017-02-19] MEDS: DIAZEPAM 5 MG TABLET PO SCH ×2 (03:22→10:13)
[2017-02-19] MEDS: HEPARIN SOD (PORCINE) 5,000 UNIT/ML 1 ML SYRINGE SUBCUT SCH (05:21)
[2017-02-19] MEDS: LORAZEPAM INJ 2 MG/1 ML VIAL IV PRN (05:24)
[2017-02-19] MEDS ORDERED: OXYCODONE HCL IR 5 MG TABLET PO PRN ×2 (07:31→07:32)
[2017-02-19] MEDS ORDERED: LORAZEPAM INJ 2 MG/1 ML VIAL IV PRN (07:33)
[2017-02-19] MEDS ORDERED: LORAZEPAM 0.5 MG TABLET PO PRN (07:34)
[2017-02-19] MEDS ORDERED: ONDANSETRON HCL INJ/PF 4 MG/2 ML SDV IV PRN (08:00)
[2017-02-19] MEDS ORDERED: LANSOPRAZOLE 30 MG TAB.RAP.DR PO SCH (08:00)
[2017-02-19] MEDS ORDERED: NICOTINE 14 MG/24 HR PATCH.TD24 TD SCH (10:00)
[2017-02-19] MEDS: BUPROPION HCL 75 MG TABLET PO SCH (10:12)
[2017-02-19 12:06] VITALS: BP 140/86
--- NOTE | 2017-02-19 12:08 | PDOC DISCHARGE SUMMARY ---
General - Admit/Disc Date/PCP Admission Date/Primary Care Provider: 02/17/17 03:57 Discharge Date: 02/19/17 - Discharge Diagnosis (1) Alcoholic pancreatitis Is this a current diagnosis for this admission?: Yes (2) Hypernatremia Is this a current diagnosis for this admission?: Yes (3) Anxiety Is this a current diagnosis for this admission?: Yes (4) Chronic alcoholism Is this a current diagnosis for this admission?: Yes (5) Depressive disorder Is this a current diagnosis for this admission?: Yes (6) Tobacco dependence Is this a current diagnosis for this admission?: Yes (7) Hypomagnesemia Is this a current diagnosis for this admission?: Yes (8) Obesity (BMI 30.0-34.9) Is this a current diagnosis for this admission?: Yes - Additional Information Resuscitation Status: Full Code Discharge Diet: As Tolerated Discharge Activity: Activity As Tolerated, Balance Activity w/Rest Prescriptions: Diazepam [Valium] 10 mg PO ASDIR PRN #20 tablet PRN Reason: Oxycodone HCl [Oxy-Ir 5 mg Tablet] 5 mg PO Q4HP PRN #20 tablet PRN Reason: Home Medications: Bupropion HCl [Wellbutrin 75 mg Tablet] 75 mg PO Q12 02/17/17 Trazodone HCl [Desyrel] 150 mg PO QHS 02/17/17 Diazepam [Valium] 10 mg PO ASDIR PRN #20 tablet 02/19/17 Oxycodone HCl [Oxy-Ir 5 mg Tablet] 5 mg PO Q4HP PRN #20 tablet 02/19/17 History of Present Illness History of Present Illness: Per H&P by Dr. Winkler: DEBORAH HARDY is a 31 year old male with a PMH of alcoholic pancreatitis who presents with complaints of abdominal pain. Patient reports that he has been daily drinking and after drinking about 1/5 of vodka he is subsequently developed intense mid epigastric abdominal pain, nausea, no vomiting. He reports it was severe, constant, stabbing pain with radiation through to his back. Patient has been admitted/discharged on 01/30/17 through for alcoholic pancreatitis. He is referred to the hospitalist service for evaluation and treatment of this condition. Hospital Course Hospital Course: The patient was admitted to [facility] on continuous cardiac telemetry. His pancreatitis was managed with IV fluids, Protonix, n.p.o. status, and as needed Dilaudid for pain and Zofran for nausea/vomiting. Despite his n.p.o. status, the patient continued to drink large volumes of water from the room sink and so was quickly advanced to a clear liquid diet and transitioned from IV to p.o. narcotics. The patient tolerated dietary advancement and on day of discharge was eating a full liquid diet without worsening abdominal pain, nausea, or vomiting. He was placed on scheduled Valium and as needed Ativan for withdrawal protocol. He received daily thiamine and folic acid supplementation. Electrolytes were monitored and replaced as necessary. He did not experience any evidence of acute withdrawal or delirium tremens while inpatient. The patient was again advised on the dangers of his continued alcohol drinking with recommendations for inpatient rehabilitation. The patient declined inpatient rehab at this time, stating that he is planning an out of state move the end of this week. Our social work team was able to provide him with social media marketing analyst and resources for his planned new residence. On day of discharge, he is tolerating a full liquid diet with adequately managed pain. He is prescribed a short prescription for oxycodone and Valium. He is advised not to take these medications if he continues to drink. Physical Exam Vital Signs: Temp Pulse Resp BP Pulse Ox 98.3 F 47 L 19 136/92 H 100 02/19/17 11:30 02/19/17 11:30 02/19/17 11:30 02/19/17 11:30 02/19/17 11:30 Intake & Output 02/18/17 02/19/17 02/20/17 06:59 06:59 06:59 Intake Total 4340 3267 Output Total 1025 1210 Balance 3315 2057 Weight 120.9 kg 120.9 kg General appearance: PRESENT: no acute distress, well-developed, well-nourished Head exam: PRESENT: atraumatic, normocephalic Eye exam: PRESENT: conjunctiva pink, EOMI, PERRLA. ABSENT: scleral icterus Ear exam: PRESENT: normal external ear exam Mouth exam: PRESENT: moist, tongue midline Neck exam: ABSENT: carotid bruit, JVD, lymphadenopathy, thyromegaly Respiratory exam: PRESENT: clear to auscultation ella. ABSENT: rales, rhonchi, wheezes Cardiovascular exam: PRESENT: RRR. ABSENT: diastolic murmur, rubs, systolic murmur Pulses: PRESENT: normal dorsalis pedis pul Vascular exam: PRESENT: normal capillary refill GI/Abdominal exam: PRESENT: normal bowel sounds, soft. ABSENT: distended, guarding, mass, organolmegaly, rebound, tenderness Rectal exam: PRESENT: deferred Extremities exam: PRESENT: full ROM. ABSENT: calf tenderness, clubbing, pedal edema Neurological exam: PRESENT: alert, awake, oriented to person, oriented to place , oriented to time, oriented to situation, CN II-XII grossly intact. ABSENT: motor sensory deficit Psychiatric exam: PRESENT: appropriate affect, normal mood. ABSENT: homicidal ideation, suicidal ideation Skin exam: PRESENT: dry, intact, warm. ABSENT: cyanosis, rash Results Laboratory Results: 02/18/17 04:33 02/18/17 04:33 Impressions: Abdomen/Pelvis CT 02/17/17 01:32 IMPRESSION: Moderate pancreatitis pattern. Qualifiers PATEINT BEING DISCHARGED WITH ANY OF THE FOLLOWING DIAGNOSIS?: No Plan Discharge Plan: Discharge to home with self-care. Time Spent: Less than 30 Minutes
[2017-02-20] MEDS ORDERED: LANSOPRAZOLE 30 MG TAB.RAP.DR PO SCH (06:00)
== END 2017-02-19 12:35 | disposition home or self-care (01) | DRG 439 ==
LOC: ER 00:43 → EH 03:57 → 4N 07:52
PROVIDERS: ADMIT Family Medicine; ATTEND Family Medicine
DX: K85.20 Alcohol induced acute pancreatitis without necrosis or infection (principal); E87.0 Hyperosmolality and hypernatremia; E83.42 Hypomagnesemia; F10.20 Alcohol dependence, uncomplicated; I10 Essential (primary) hypertension; K21.9 Gastro-esophageal reflux disease without esophagitis; F32.9 Major depressive disorder, single episode, unspecified; F41.9 Anxiety disorder, unspecified; E66.9 Obesity, unspecified; F17.210 Nicotine dependence, cigarettes, uncomplicated; Y90.9 Presence of alcohol in blood, level not specified; Z68.33 Body mass index [BMI] 33.0-33.9, adult
CPT/HCPCS: 36415; 74177; 80053; 83615; 83690; 83735; 85025; 85610; 86140; 96361; 96374; 96375; 99285; J1170; J1644; J2060; J2270; J2405; J3411; J3490; J7030; J7050; S0164